=== PATIENT | female | born 1945 | race Caucasian/White ===

== ENCOUNTER 2017-03-20 22:23 | Inpatient (IN) | payer MEDICARE ==
[2017-03-20 23:17] LABS: Basophils % (Auto) 1.1 % (0.0-1.8); Eosinophils % (Auto) 0.9 % (0.0-4.3); Hematocrit 50.8 % (30.3-42.9); Hemoglobin 16.7 gm/dl (10.1-14.3); Mean Corpuscular HGB Conc 33 % (30-34); Mean Corpuscular Hemoglobin 28 pg (28-32); Mean Corpuscular Volume 84 fl (79-97); Platelet Count 174 K/mm3 (140-440); Red Blood Count 6.04 M/mm3 (3.65-5.03)
[2017-03-20 23:35] LABS: INR 1.09 (0.87-1.13)
[2017-03-20 23:36] LABS: Partial Thromboplastin Time 31.6 Sec. (24.2-36.6)
[2017-03-21] MEDS ORDERED: DILAUDID IV ONE (00:15)
[2017-03-21] MEDS ORDERED: ZOFRAN IV ONE (00:15)
[2017-03-21 00:17] LABS: Anion Gap 25 mmol/L; BUN/Creatinine Ratio 40; Blood Urea Nitrogen 24 mg/dL (7-17); Calcium 9.2 mg/dL (8.4-10.2); Carbon Dioxide 17 mmol/L (22-30); Chloride 100.8 mmol/L (98-107); Glucose 147 mg/dL (65-100); Sodium 139 mmol/L (137-145)
[2017-03-21 00:55] LABS: INR 1.12 (0.87-1.13)
[2017-03-21 00:56] LABS: Partial Thromboplastin Time 32.5 Sec. (24.2-36.6)
--- NOTE | 2017-03-21 00:59 | Emergency Department Report ---
ED Shortness of Breath HPI - General Chief Complaint: Dyspnea/Respdistress Stated Complaint: PIERRE Time Seen by Provider: 03/21/17 00:52 Source: patient, family (daughter at bedside), EMS, old records reviewed (no previous [facility] record) Mode of arrival: Stretcher Limitations: Physical Limitation - History of Present Illness Initial Comments: 71-year-old female the pastas CHF, CVA, diabetes, CAD with 3 stents, depression , A. fib, and hyperlipidemia presents to the hospital with diagnosis of acute exacerbation of heart failure. Patient has shortness of breath and hypoxia at the half-way prior to evaluation. Patient had one dose of Lasix and was sent to the ED for evaluation. Patient denies chest pain but complains of moderate back and bilateral leg pain secondary to stretcher and pt has chronic pain and takes Percocet as needed. Patient is not on any anticoagulation at this time. Patient's last cath years ago with 3 stents placed and patient went into cardiac arrest during the procedure. She is currently DO NOT RESUSCITATE. Previously treated at [facility], [place]. No previous medical record available for review here. - Related Data Allergies Allergy/AdvReac Type Severity Reaction Status Date / Time amoxicillin Allergy Unknown Verified 03/20/17 22:25 codeine Allergy Unknown Verified 03/20/17 22:25 darifenacin [From Enablex] Allergy Unknown Verified 03/20/17 22:31 diatrizoate meglumine Allergy Unknown Verified 03/20/17 22:33 [From Renografin-60] diatrizoate sodium Allergy Unknown Verified 03/20/17 22:33 [From Renografin-60] hydrocodone Allergy Unknown Verified 03/20/17 22:32 iohexol [From Omnipaque] Allergy Unknown Verified 03/20/17 22:33 latex Allergy Unknown Verified 03/20/17 22:32 levofloxacin [From Levaquin] Allergy Unknown Verified 03/20/17 22:32 Penicillins Allergy Unknown Verified 03/20/17 22:26 ED Review of Systems ROS: Stated complaint: PIERRE Other details as noted in HPI Comment: All other systems reviewed and negative (see hpi) ED Past Medical Hx - Past Medical History Previous Medical History?: Yes Hx CVA: Yes Hx Heart Attack/AMI: Yes (3 stents) Hx Congestive Heart Failure: Yes (systolic and diastolic) Hx Diabetes: Yes (Diet controlled) Hx Headaches / Migraines: Yes Hx Psychiatric Treatment: Yes (depression) Additional medical history: AFIB, Hyperlipidema - Social History Smoking Status: Never Smoker ED Physical Exam - General Limitations: Physical Limitation - Other Other exam information: General: obese Head exam: Atraumatic, normocephalic Eyes exam: Normal appearance ENT: Moist mucous membrane, normal oropharynx Neck exam: Normal inspection, full range of motion, no meningismus nontender Respiratory exam: Crackles bilaterally Cardiovascular: Irregular rhythm, positive systolic murmur Abdomen: Soft, nondistended, and nontender, with normal bowel sounds, no rebound, or guarding Extremity: Bilateral lower extremity edema Neurologic: Alert, sensation grossly intact Psychiatric: normal affect, normal mood Skin: Warm, dry, intact ED Course Vital Signs 03/20/17 22:33 Temperature 97.5 F L Pulse Rate 66 Respiratory 24 Rate Blood Pressure 157/88 O2 Sat by Pulse 95 Oximetry - Reevaluation(s) Reevaluation #1: 03/21/17 01:03 BiPAP initiated in the ED ED Medical Decision Making - Lab Data Result diagrams: 03/20/17 23:08 03/20/17 23:08 Lab Results 03/20/17 03/20/17 03/20/17 Range/Units 23:08 23:08 23:08 WBC 14.0 H (4.5-11.0) K/mm3 RBC 6.04 H (3.65-5.03) M/mm3 Hgb 16.7 H (10.1-14.3) gm/dl Hct 50.8 H (30.3-42.9) % MCV 84 (79-97) fl MCH 28 (28-32) pg MCHC 33 (30-34) % RDW 14.0 (13.2-15.2) % Plt Count 174 (140-440) K/mm3 Lymph % (Auto) 12.4 L (13.4-35.0) % Donley % (Auto) 5.8 (0.0-7.3) % Eos % (Auto) 0.9 (0.0-4.3) % Baso % (Auto) 1.1 (0.0-1.8) % Lymph # 1.7 (1.2-5.4) K/mm3 Donley # 0.8 (0.0-0.8) K/mm3 Eos # 0.1 (0.0-0.4) K/mm3 Baso # 0.2 H (0.0-0.1) K/mm3 Seg Neutrophils % 79.8 H (40.0-70.0) % Seg Neutrophils # 11.2 H (1.8-7.7) K/mm3 PT 14.7 (12.2-14.9) Sec. INR 1.09 (0.87-1.13) APTT 31.6 (24.2-36.6) Sec. Sodium 139 (137-145) mmol/L Potassium 4.0 (3.6-5.0) mmol/L Chloride 100.8 (98-107) mmol/L Carbon Dioxide 17 L (22-30) mmol/L Anion Gap 25 mmol/L BUN 24 H (7-17) mg/dL Creatinine 0.6 L (0.7-1.2) mg/dL Estimated GFR > 60 ml/min BUN/Creatinine Ratio 40 % Glucose 147 H (65-100) mg/dL Calcium 9.2 (8.4-10.2) mg/dL Troponin T < 0.010 (0.00-0.029) ng/mL NT-Pro-B Natriuret Pep (0-900) pg/mL 03/20/17 03/21/17 Range/Units 23:08 00:22 WBC (4.5-11.0) K/mm3 RBC (3.65-5.03) M/mm3 Hgb (10.1-14.3) gm/dl Hct (30.3-42.9) % MCV (79-97) fl MCH (28-32) pg MCHC (30-34) % RDW (13.2-15.2) % Plt Count (140-440) K/mm3 Lymph % (Auto) (13.4-35.0) % Donley % (Auto) (0.0-7.3) % Eos % (Auto) (0.0-4.3) % Baso % (Auto) (0.0-1.8) % Lymph # (1.2-5.4) K/mm3 Donley # (0.0-0.8) K/mm3 Eos # (0.0-0.4) K/mm3 Baso # (0.0-0.1) K/mm3 Seg Neutrophils % (40.0-70.0) % Seg Neutrophils # (1.8-7.7) K/mm3 PT 15.0 H (12.2-14.9) Sec. INR 1.12 (0.87-1.13) APTT 32.5 (24.2-36.6) Sec. Sodium (137-145) mmol/L Potassium (3.6-5.0) mmol/L Chloride (98-107) mmol/L Carbon Dioxide (22-30) mmol/L Anion Gap mmol/L BUN (7-17) mg/dL Creatinine (0.7-1.2) mg/dL Estimated GFR ml/min BUN/Creatinine Ratio % Glucose (65-100) mg/dL Calcium (8.4-10.2) mg/dL Troponin T (0.00-0.029) ng/mL NT-Pro-B Natriuret Pep 3718 H (0-900) pg/mL - EKG Data -: EKG Interpreted by Me (aftib rate 73, RBBB, no stemi) - EKG Data When compared to previous EKG there are: previous EKG unavailable - Radiology Data Radiology results: image reviewed (cxr: pulm edema) - Medical Decision Making Patient has pulmonary edema on x-ray. BiPAP initiated and had a reported history of sleep apnea CPAP use. Patient be admitted to the hospital for further diuresis and treatment - Differential Diagnosis CHF exacerbation, IA, unstable angina, A. fib, PE Critical Care Time: No Critical care attestation.: If time is entered above; I have spent that time in minutes in the direct care of this critically ill patient, excluding procedure time. ED Disposition Clinical Impression: Pulmonary edema, Chronic atrial fibrillation, Hx of heart artery stent, Chronic pain, Diabetes, DNR (do not resuscitate) Disposition: DC-09 OP ADMIT IP TO THIS HOSP Is pt being admited?: Yes Condition: Stable Time of Disposition: 00:59 (Dr Mathew/hosp)
[2017-03-21] MEDS ORDERED: D50W (25GM) Syringe IV PRN (01:27)
[2017-03-21] MEDS ORDERED: TYLENOL PO PRN ×2 (01:31→14:00)
[2017-03-21] MEDS ORDERED: ZOFRAN IV PRN (01:31)
[2017-03-21] MEDS ORDERED: NITROSTAT SL PRN (01:35)
--- NOTE | 2017-03-21 02:59 | History and Physical Report ---
CHIEF COMPLAINT: Difficulty in breathing. HISTORY OF PRESENT ILLNESS: The patient is a 71-year-old female, who has been having shortness of breath since yesterday morning and becoming presently worse and this was happening at the half-way where the patient was noted to be short of breath, evaluated and given a dose of Lasix and was sent to the Emergency Room for further evaluation. There is no history of chest pain, but there is history of back pain and also history of leg pain. The patient stated that she was taken off anticoagulant even though she has history of atrial fibrillation. The patient's code status is do not resuscitate. There is no history of fever or chills and no history of cough. PAST MEDICAL HISTORY: Pertinent for cerebrovascular accident, coronary artery disease, congestive heart failure, diabetes mellitus, migraine headache, depression, atrial fibrillation and hyperlipidemia. PAST SURGICAL HISTORY: Pertinent for stent placement. FAMILY HISTORY: Noncontributory. SOCIAL HISTORY: The patient stays at a half-way, does not smoke, does not drink alcohol and does not use illicit drugs. MEDICATIONS: The patient's home medications are not known at this time. ALLERGIES: THE PATIENT IS ALLERGIC TO AMOXICILLIN, CODEINE, DARIFENACIN, DIATRIZOATE MEGLUMINE. REVIEW OF SYSTEMS: CONSTITUTIONAL: There is no fever, no chills, no diaphoresis. HEENT: There is no headache or sore throat. CARDIOVASCULAR: There is no chest pain, orthopnea. RESPIRATORY: Shortness of breath present. There is no cough. GASTROINTESTINAL: There is no nausea, no vomiting, no abdominal pain, diarrhea or constipation. NEUROLOGICAL: There is no numbness. No dizziness. There is generalized weakness. No altered mental status. MUSCULOSKELETAL: There is pain in the legs noted. Back pain is noted. There is no joint swelling. DERMATOLOGICAL: There is no skin rash or itching. GENITOURINARY: There is no dysuria, hematuria or flank pain. Rest of system review is normal. PHYSICAL EXAMINATION: GENERAL: At the time of exam, the patient was found to be alert and oriented x 3 and in mild distress due to shortness of breath. VITAL SIGNS: Shows temperature of 97.5 degrees Fahrenheit, normal pulse rate, respirations 24, blood pressure 138/90, O2 sat of 95% while on BiPAP. HEENT: Showed pupils to be equal, round, reactive to light and accommodation. Extraocular muscles are intact. NECK: Supple with no JVD or carotid bruit. CARDIOVASCULAR SYSTEM: Show first and second heart sounds with no gallops or murmur. RESPIRATORY: Showed good air entry on both sides of the lung with bibasilar rales and mild respiratory wheezing. GASTROINTESTINAL SYSTEM: Show abdomen to be full, soft, nontender with no organomegaly or rigidity. NEUROLOGIC: Showed no focal deficit. MUSCULOSKELETAL: Show no joint swelling or tenderness. DERMATOLOGICAL SYSTEM: Show no skin rash. GENITOURINARY: Showing no costovertebral angle tenderness. PERTINENT LABORATORY DATA AND IMAGING STUDIES: The patient has CBC done that shows elevated white count of 14,000 with elevated hemoglobin of 15.7 and elevated hematocrit of 50.8 with normal MCV. CBC differential showed elevated segmented neutrophils of 79.8 and coagulation studies came back unremarkable. The patient's chemistry shows a slightly elevated BUN of 24 with unremarkable creatinine. Brain natriuretic peptide is high with a value of 3718. Cardiac enzymes show normal troponin level. IMAGING STUDIES: The patient had chest x-ray done that shows obvious pulmonary edema. DIAGNOSIS: Congestive heart failure exacerbation. PLAN: The patient will be admitted to ICU. We will continue BiPAP started in the Emergency Room until reviewed by the rounding doctors and can be discontinued. The patient will have 2D echo done in the morning and will have cardiac enzyme involving troponin, total CK and CK-MB checked q. 6 hours x 2 more levels. The patient will have Accu-Chek before meals and at bedtime followed by low-dose sliding scale using regular Novolin insulin for coverage for blood sugar greater than 150 mg/dL. The patient will have critical care consult with Dr. Slaughter for ICU admission for pulmonary edema with BiPAP. The patient's diet will be consisting carbohydrate diet and also low sodium of 2 g sodium diet. The patient will have CBC checked in the morning. The patient will be on Tylenol 650 mg by mouth every 4 hours for fever, headache and will be on IV Lasix 40 mg daily. The patient will also be on heparin 5000 units subQ q. 12 hours for DVT prophylaxis and will be on nitroglycerin ointment one inch to anterior chest wall t.i.d. as well as sublingual nitroglycerin 0.4 mg every 5 minutes as needed for chest pain. The patient will probably be on IV Zofran 4 mg q. 8 hours for nausea, vomiting and the patient's home medications will be continued and will be reconciled and started accordingly when they are known. Right now, the patient's home medications are not known. The patient will be on Tylenol 650 mg q. 4 hours for fever and headache. JOB# [id number] OCN/SUDHEER MTDD
[2017-03-21] MEDS ORDERED: NITRO-BID 2% TP ONE ×2 (06:14→12:29)
[2017-03-21] MEDS: NITRO-BID 2% TP SCH ×3 (06:30→18:23)
--- NOTE | 2017-03-21 08:39 | XRay Report ---
PORTABLE CHEST INDICATION: Shortness of breath. COMPARISON: None similar at this institution. FINDINGS: Portable, frontal chest radiograph suggests mild cardiomegaly/exaggerated cardiomediastinal silhouette, though in part obscured due to diffuse bilateral airspace opacities, the largest confluent approximately 6.5 x 4 cm in the peripheral left upper lung zone. Left lateral costophrenic angle also not clearly visualized, though large pleural effusions not suspected. Aortic knob calcifications. Demineralized bones with few degenerative changes. CONCLUSION: 1. Extensive bilateral airspace opacities with differential considerations including infection, edema or neoplastic, amongst others. 2. Mild cardiomegaly. Please also correlate clinically, with prior chest imaging or further with CT, as appropriate. Thank you for the opportunity to participate in this patient's care.
[2017-03-21] MEDS: NORVASC PO SCH (09:30)
[2017-03-21] MEDS ORDERED: NORVASC ONE (09:32)
[2017-03-21 09:52] LABS: Hemoglobin 15.7 gm/dl (10.1-14.3); Mean Corpuscular HGB Conc 33 % (30-34); Mean Corpuscular Hemoglobin 28 pg (28-32); Mean Corpuscular Volume 84 fl (79-97); Platelet Count 161 K/mm3 (140-440); Red Cell Distribution Width 14.2 % (13.2-15.2); White Blood Count 13.5 K/mm3 (4.5-11.0)
[2017-03-21] MEDS ORDERED: LASIX IV SCH (10:00)
[2017-03-21 10:14] LABS: Creatine Kinase MB 1.1 ng/mL (0.0-4.0)
[2017-03-21 10:15] LABS: Creatine Kinase 22 units/L (30-135)
[2017-03-21] MEDS ORDERED: LASIX ONE (11:37)
[2017-03-21] MEDS ORDERED: HEPARIN ONE (11:38)
[2017-03-21] MEDS: HEPARIN SUB-Q SCH ×2 (11:50→22:11)
[2017-03-21 12:48] LABS: Creatine Kinase MB 1.1 ng/mL (0.0-4.0)
[2017-03-21 12:49] LABS: Creatine Kinase 30 units/L (30-135)
[2017-03-21] MEDS ORDERED: NON-FORMULARY (Oxycodone Hcl [Oxycodone Tab] 10 MG) PO PRN (13:59)
[2017-03-21] MEDS ORDERED: COREG ONE (14:09)
[2017-03-21] MEDS: COLACE PO SCH ×2 (14:17→22:55)
[2017-03-21] MEDS: COREG PO SCH ×2 (14:18→22:09)
[2017-03-21] MEDS ORDERED: ROXICODONE PO PRN (15:00)
[2017-03-21] MEDS: LASIX IV SCH (18:23)
[2017-03-21] MEDS ORDERED: NON-FORMULARY (Atorvastatin Calcium [Lipitor] 80 MG) PO SCH (22:00)
[2017-03-21] MEDS: WELLBUTRIN SR PO SCH (22:10)
[2017-03-21] MEDS: RESTORIL PO SCH (22:10)
[2017-03-21] MEDS: SENOKOT S PO SCH (22:11)
[2017-03-22] MEDS: LASIX IV SCH ×2 (06:05→19:16)
[2017-03-22] MEDS: NITRO-BID 2% TP SCH ×3 (06:05→19:15)
--- NOTE | 2017-03-22 10:19 | Progress Note ---
Assessment and Plan Assessment and plan: 71-year-old woman with a past medical history of CHF, history of CVA, diabetes, CAD status post 3 stents, depression, atrial fibrillation and hyperlipidemia who presents with shortness of breath and hypoxia consistent with acute exacerbation of CHF. she resides at [facility]. She has multiple medical problems, she's had many recent admissions to the hospital. The patient elected to be DO NOT RESUSCITATE. In the last year alone she's had 3 strokes, she's had a massive heart attack, she developed some bleeding in her GI tract which causes her hematemesis and some abdominal hematoma. She has CLEVE, after she had a massive heart attack she was comatose for 10 days. She has been in and out of rehabilitation until she was finally made a long-term resident of correction months ago. She is on oxygen by nasal cannula as needed, she was supposed to be on a CPAP machine in the past but it has not been continued since her she got to the correction. She is also morbidly obese Echocardiogram, image reviewed, severe mitral leaflet calcification, moderate mitral stenosis and moderate mitral regurgitation, dilated left atrium, mild to moderate . EF of 60% Acute exacerbation of chronic diastolic CHF -Continue IV Lasix, continue beta syed, optimize medications. -We'll benefit from ISIS inhibitor versus ARB Pulmonary venous congestion Continue Lasix as above Atrial fibrillation Continue beta syed Acute on chronic hypoxic respiratory failure Continue rescue BiPAP as needed, continue oxygen supplementation -uses oxygen prn at baseline Diabetes Continue insulins and sliding scale CLEVE cpap at night if not on bipap (educated her daughter that her not using CPAP at [place] is likely worsening her CHF) Obesity Hypoventilation continue bipap and cpap as above Patient is DNR, the case was discussed with the daughter at the bedside and with construction safety consultant The high probability of a clinically significant, sudden or life threatening deterioration of the [cardiovascular, pulmonary] system(s) required my full and direct attention, intervention and personal management. The aggregate critical care time was [33 minutes] minutes. This time is in addition to time spent performing reported procedures but includes the following: [] Data Review and interpretation [] Patient assessment and monitoring of vital signs [] Documentation [] Medication orders and management History Interval history: Patient is currently moaning, short of breath. She is not speaking. Spoke to her daughter at bedside who states that a few days ago she had a cold, now she is short of breath swollen and not doing well. Hospitalist Physical - Physical exam Narrative exam: General.: Severe respiratory distress, using accessory muscles HEENT: Moist mucous membranes, extraocular muscles intact, no lymphadenopathy Neck: supple Cardiac: S1-S2 heard Lungs: Crackles throughoutistended, bowel sounds positive Extremities: 3+ bipedal edema Skin: no rash or lesions Neurologic: Moaning and groaning, moves all extremities, withdraws to pain, nonverbal at this time, lethargic - Constitutional Vitals: Temp Pulse Resp BP Pulse Ox 97.6 F 97 H 20 162/64 95 03/22/17 04:23 03/22/17 06:05 03/22/17 04:23 03/22/17 06:05 03/22/17 09:19 Results - Labs CBC & Chem 7: 03/21/17 09:30 03/20/17 23:08 Labs: Laboratory Last Values WBC 13.5 K/mm3 (4.5-11.0) H 03/21/17 09:30 RBC 5.60 M/mm3 (3.65-5.03) H 03/21/17 09:30 Hgb 15.7 gm/dl (10.1-14.3) H 03/21/17 09:30 Hct 47.0 % (30.3-42.9) H 03/21/17 09:30 MCV 84 fl (79-97) 03/21/17 09:30 MCH 28 pg (28-32) 03/21/17 09:30 MCHC 33 % (30-34) 03/21/17 09:30 RDW 14.2 % (13.2-15.2) 03/21/17 09:30 Plt Count 161 K/mm3 (140-440) 03/21/17 09:30 Lymph % (Auto) 12.4 % (13.4-35.0) L 03/20/17 23:08 Mcpherson % (Auto) 5.8 % (0.0-7.3) 03/20/17 23:08 Eos % (Auto) 0.9 % (0.0-4.3) 03/20/17 23:08 Baso % (Auto) 1.1 % (0.0-1.8) 03/20/17 23:08 Lymph # 1.7 K/mm3 (1.2-5.4) 03/20/17 23:08 Mcpherson # 0.8 K/mm3 (0.0-0.8) 03/20/17 23:08 Eos # 0.1 K/mm3 (0.0-0.4) 03/20/17 23:08 Baso # 0.2 K/mm3 (0.0-0.1) H 03/20/17 23:08 Seg Neutrophils % 79.8 % (40.0-70.0) H 03/20/17 23:08 Seg Neutrophils # 11.2 K/mm3 (1.8-7.7) H 03/20/17 23:08 PT 15.0 Sec. (12.2-14.9) H 03/21/17 00:22 INR 1.12 (0.87-1.13) 03/21/17 00:22 APTT 32.5 Sec. (24.2-36.6) 03/21/17 00:22 Sodium 139 mmol/L (137-145) 03/20/17 23:08 Potassium 4.0 mmol/L (3.6-5.0) 03/20/17 23:08 Chloride 100.8 mmol/L (98-107) 03/20/17 23:08 Carbon Dioxide 17 mmol/L (22-30) L 03/20/17 23:08 Anion Gap 25 mmol/L 03/20/17 23:08 BUN 24 mg/dL (7-17) H 03/20/17 23:08 Creatinine 0.6 mg/dL (0.7-1.2) L 03/20/17 23:08 Estimated GFR > 60 ml/min 03/20/17 23:08 BUN/Creatinine Ratio 40 % 03/20/17 23:08 Glucose 147 mg/dL (65-100) H 03/20/17 23:08 POC Glucose 164 (70-105) H 03/21/17 22:47 Calcium 9.2 mg/dL (8.4-10.2) 03/20/17 23:08 Total Creatine Kinase 30 units/L (30-135) 03/21/17 11:52 CK-MB (CK-2) 1.1 ng/mL (0.0-4.0) 03/21/17 11:52 CK-MB (CK-2) Rel Index 3.6 (0-4) 03/21/17 11:52 Troponin T < 0.010 ng/mL (0.00-0.029) 03/21/17 11:52 NT-Pro-B Natriuret Pep 3718 pg/mL (0-900) H 03/20/17 23:08 - Imaging and Cardiology Chest x-ray: image reviewed (extensive pulmonary edema)
[2017-03-22] MEDS: COLACE PO SCH ×2 (11:12→22:50)
[2017-03-22] MEDS: NORVASC PO SCH (11:13)
[2017-03-22] MEDS: COREG PO SCH ×2 (11:13→22:50)
[2017-03-22] MEDS: WELLBUTRIN SR PO SCH ×2 (11:14→22:50)
[2017-03-22] MEDS: ROXICODONE PO PRN (11:17)
[2017-03-22] MEDS: HEPARIN SUB-Q SCH ×2 (11:18→22:50)
--- NOTE | 2017-03-22 14:51 | Consultation ---
History of Present Illness Consult date: 03/22/17 Consult reason: congestive heart failure History of present illness: This is a 71yr old woman who resides in a alf who presented with complaints of shortness of breath. Daughter at bedside reports the patient had nausea, vomiting and abdominal pain after possibly eating bad food. 2 days later , the patient became short of breath and was sent to the ED for evaluation. Cardiac consultation was requested for CHF. Daughter at bedside reports the patient has a history of atrial fibrillation but is no longer on oral anticoagulation due to micro-hemorrhages seen on MRI at [place]. There is also a history of Coronary artery disease, CHF, HTN, Sleep apnea and prior CVA. Chest x-ray reports pulmonary edema versus infection versus neoplasm. Patient remains afebrile but labs shows a WBC 14,000 on presentation. Echocardiogram done this admission demonstrates a severe mitral leaflet calcification, moderate mitral stenosis and moderate mitral regurgitation. There was a dilated left atrium, mild to moderate and evidence of severe pulmonary hypertension. Normal left ventricular systolic function, EF of 60-65%. ECG is atrial fibrillation with a well controlled ventricular rate and a right bundle branch block. Medications and Allergies Allergies Allergy/AdvReac Type Severity Reaction Status Date / Time amoxicillin Allergy Unknown Verified 03/20/17 22:25 codeine Allergy Unknown Verified 03/20/17 22:25 darifenacin [From Enablex] Allergy Unknown Verified 03/20/17 22:31 diatrizoate meglumine Allergy Unknown Verified 03/20/17 22:33 [From Renografin-60] diatrizoate sodium Allergy Unknown Verified 03/20/17 22:33 [From Renografin-60] hydrocodone Allergy Unknown Verified 03/20/17 22:32 iohexol [From Omnipaque] Allergy Unknown Verified 03/20/17 22:33 latex Allergy Unknown Verified 03/20/17 22:32 levofloxacin [From Levaquin] Allergy Unknown Verified 03/20/17 22:32 Penicillins Allergy Unknown Verified 03/20/17 22:26 Home Medications Medication Instructions Recorded Confirmed Last Taken Type Acetaminophen [Non-Aspirin] 650 mg PO Q6H PRN 03/21/17 03/21/17 Unknown History Atorvastatin Calcium [Lipitor] 80 mg PO QHS 03/21/17 03/21/17 Unknown History Benzonatate [Tessalon Perle] 200 mg PO Q18H PRN 03/21/17 03/21/17 Unknown History Carvedilol [Coreg] 12.5 mg PO Q12H 03/21/17 03/21/17 Unknown History Cetirizine HCl [ZyrTEC] 10 mg PO QDAY 03/21/17 03/21/17 Unknown History Docusate Sodium [Colace CAP] 100 mg PO Q12H 03/21/17 03/21/17 Unknown History Furosemide [Lasix] 20 mg PO QDAY 03/21/17 03/21/17 Unknown History Oxycodone HCl [oxyCODONE TAB] 10 mg PO Q4H PRN 03/21/17 03/21/17 Unknown History Sennosides/Docusate Sodium [Senna 1 tab PO QHS 03/21/17 03/21/17 Unknown History S Tablet] Temazepam [Restoril] 15 mg PO QHS 03/21/17 03/21/17 Unknown History amLODIPine [Norvasc] 10 mg PO QDAY 03/21/17 03/21/17 Unknown History buPROPion SR [Wellbutrin SR] 150 mg PO BID 03/21/17 03/21/17 Unknown History Active Meds: Active Medications Acetaminophen (Tylenol) 650 mg PO Q6H PRN PRN Reason: fever/headache Amlodipine Besylate (Norvasc) 10 mg PO QDAY [facility] Last Admin: 03/21/17 09:30 Dose: 10 mg Atorvastatin Calcium (Lipitor) 80 mg PO QHS [facility] Last Admin: 03/21/17 22:08 Dose: 80 mg Bupropion HCl (Wellbutrin Sr) 150 mg PO BID [facility] Last Admin: 03/21/17 22:10 Dose: 150 mg Carvedilol (Coreg) 12.5 mg PO Q12HR [facility] Last Admin: 03/21/17 22:09 Dose: 12.5 mg Dextrose (D50w (25gm) Syringe) 50 ml IV PRN PRN PRN Reason: Hypoglycemia Docusate Sodium (Colace) 100 mg PO Q12HR [facility] Last Admin: 03/21/17 22:55 Dose: Not Given Furosemide (Lasix) 40 mg IV 0600,1800 [facility] Last Admin: 03/22/17 06:05 Dose: 40 mg Heparin Sodium (Porcine) (Heparin) 5,000 unit SUB-Q Q12HR [facility] Last Admin: 03/21/17 22:11 Dose: 5,000 unit Insulin Human Regular (Novolin R) 0 units SUB-Q [facility] PRN Reason: Protocol Last Admin: 03/21/17 18:23 Dose: Not Given Insulin Human Regular (Novolin R) 0 units SUB-Q QHS [facility] PRN Reason: Protocol Last Admin: 03/21/17 22:55 Dose: 1 units Nitroglycerin (Nitrostat) 0.4 mg SL .Q5MIN PRN PRN Reason: Chest Pain Nitroglycerin (Nitro-Bid 2%) 1 inch TP TIDNTG [facility] PRN Reason: Protocol Last Admin: 03/22/17 06:05 Dose: 1 inch Ondansetron HCl (Zofran) 4 mg IV Q8H PRN PRN Reason: Nausea And Vomiting Oxycodone HCl (Roxicodone) 10 mg PO Q4H PRN PRN Reason: Pain Senna/Docusate Sodium (Senokot S) 1 tab PO QHS [facility] Last Admin: 03/21/17 22:11 Dose: 1 tab Temazepam (Restoril) 15 mg PO QHS [facility] Last Admin: 03/21/17 22:10 Dose: 15 mg Physical Examination Vital Signs Temp Pulse Resp BP Pulse Ox 97.5 F L 66 24 157/88 95 03/20/17 22:33 03/20/17 22:33 03/20/17 22:33 03/20/17 22:33 03/20/17 22:33 General appearance: mild distress Cardiac: Positive: irregularly irregular, Systolic Murmur Results 03/21/17 09:30 03/20/17 23:08 Assessment and Plan Shortness of breath pulmonary HTN CHF with preserved EF CLEVE Leukocytosis Persistent Afib previously considered not a candidate for oral anticoagulation Prior CVA Hypertension RBBB Hx of CAD DNR/AND status
[2017-03-22] MEDS: RESTORIL PO SCH (22:50)
[2017-03-22] MEDS: SENOKOT S PO SCH (22:50)
[2017-03-23] MEDS: NITRO-BID 2% TP SCH ×3 (06:36→17:48)
[2017-03-23] MEDS: LASIX IV SCH ×3 (06:38→17:48)
[2017-03-23] MEDS: HEPARIN SUB-Q SCH ×2 (10:07→22:11)
[2017-03-23] MEDS: WELLBUTRIN SR PO SCH ×2 (10:07→22:11)
[2017-03-23] MEDS: COLACE PO SCH ×2 (10:07→22:09)
[2017-03-23] MEDS: COREG PO SCH ×2 (10:07→22:10)
[2017-03-23] MEDS: NORVASC PO SCH (10:07)
[2017-03-23] MEDS: HALFPRIN EC PO SCH (10:07)
--- NOTE | 2017-03-23 10:14 | Progress Note ---
Assessment and Plan Assessment and plan: 71-year-old woman with a past medical history of CHF, history of CVA, diabetes, CAD status post 3 stents, depression, atrial fibrillation and hyperlipidemia who presents with shortness of breath and hypoxia consistent with acute exacerbation of CHF. she resides at [facility]. She has multiple medical problems, she's had many recent admissions to the hospital. The patient elected to be DO NOT RESUSCITATE. In the last year alone she's had 3 strokes, she's had a massive heart attack, she developed some bleeding in her GI tract which causes her hematemesis and some abdominal hematoma. She has CLEVE, after she had a massive heart attack she was comatose for 10 days. She has been in and out of rehabilitation until she was finally made a long-term resident of [facility] months ago. She is on oxygen by nasal cannula as needed, she was supposed to be on a CPAP machine in the past but it has not been continued since her she got to the [facility]. She is also morbidly obese Echocardiogram, image reviewed, severe mitral leaflet calcification, moderate mitral stenosis and moderate mitral regurgitation, dilated left atrium, mild to moderate . EF of 60% Acute exacerbation of chronic diastolic CHF -Continue IV Lasix, continue beta syed, optimize medications. -replace norvasc with an ARB Pulmonary venous congestion Continue Lasix as above Atrial fibrillation Continue beta syed Acute on chronic hypoxic respiratory failure Continue rescue BiPAP as needed, continue high flow oxygen -uses oxygen prn at baseline Diabetes Continue insulins and sliding scale CLEVE cpap at night if not on bipap (educated her daughter that her not using CPAP at [place] is likely worsening her CHF) Obesity Hypoventilation continue high flow oxygen and NIV as needed Patient is DNR, the case was discussed with the daughter at the bedside and with cardiology physician The high probability of a clinically significant, sudden or life threatening deterioration of the [cardiovascular, pulmonary] system(s) required my full and direct attention, intervention and personal management. The aggregate critical care time was [33 minutes] minutes. This time is in addition to time spent performing reported procedures but includes the following: [] Data Review and interpretation [] Patient assessment and monitoring of vital signs [] Documentation [] Medication orders and management History Interval history: Shortness of breath is partially improving. Orthopnea is also improving. Her daughter is at the bedside and states that the patient's mental status is much improved. Hospitalist Physical - Physical exam Narrative exam: General.: Severe respiratory distress, using accessory muscles HEENT: Moist mucous membranes, extraocular muscles intact, no lymphadenopathy Neck: supple Cardiac: S1-S2 heard Lungs: Crackles throughoutistended, bowel sounds positive Extremities: 2+ bipedal edema Skin: no rash or lesions Neurologic: moves all extremities, oriented, judgement intact - Constitutional Vitals: Temp Pulse Resp BP Pulse Ox 98.4 F 85 25 H 127/63 93 03/23/17 04:14 03/23/17 09:19 03/23/17 09:19 03/23/17 06:36 03/23/17 09:19 General appearance: Present: mild distress Results - Labs CBC & Chem 7: 03/21/17 09:30 03/20/17 23:08 Labs: Laboratory Last Values WBC 13.5 K/mm3 (4.5-11.0) H 03/21/17 09:30 RBC 5.60 M/mm3 (3.65-5.03) H 03/21/17 09:30 Hgb 15.7 gm/dl (10.1-14.3) H 03/21/17 09:30 Hct 47.0 % (30.3-42.9) H 03/21/17 09:30 MCV 84 fl (79-97) 03/21/17 09:30 MCH 28 pg (28-32) 03/21/17 09:30 MCHC 33 % (30-34) 03/21/17 09:30 RDW 14.2 % (13.2-15.2) 03/21/17 09:30 Plt Count 161 K/mm3 (140-440) 03/21/17 09:30 Lymph % (Auto) 12.4 % (13.4-35.0) L 03/20/17 23:08 King % (Auto) 5.8 % (0.0-7.3) 03/20/17 23:08 Eos % (Auto) 0.9 % (0.0-4.3) 03/20/17 23:08 Baso % (Auto) 1.1 % (0.0-1.8) 03/20/17 23:08 Lymph # 1.7 K/mm3 (1.2-5.4) 03/20/17 23:08 King # 0.8 K/mm3 (0.0-0.8) 03/20/17 23:08 Eos # 0.1 K/mm3 (0.0-0.4) 03/20/17 23:08 Baso # 0.2 K/mm3 (0.0-0.1) H 03/20/17 23:08 Seg Neutrophils % 79.8 % (40.0-70.0) H 03/20/17 23:08 Seg Neutrophils # 11.2 K/mm3 (1.8-7.7) H 03/20/17 23:08 PT 15.0 Sec. (12.2-14.9) H 03/21/17 00:22 INR 1.12 (0.87-1.13) 03/21/17 00:22 APTT 32.5 Sec. (24.2-36.6) 03/21/17 00:22 Sodium 139 mmol/L (137-145) 03/20/17 23:08 Potassium 4.0 mmol/L (3.6-5.0) 03/20/17 23:08 Chloride 100.8 mmol/L (98-107) 03/20/17 23:08 Carbon Dioxide 17 mmol/L (22-30) L 03/20/17 23:08 Anion Gap 25 mmol/L 03/20/17 23:08 BUN 24 mg/dL (7-17) H 03/20/17 23:08 Creatinine 0.6 mg/dL (0.7-1.2) L 03/20/17 23:08 Estimated GFR > 60 ml/min 03/20/17 23:08 BUN/Creatinine Ratio 40 % 03/20/17 23:08 Glucose 147 mg/dL (65-100) H 03/20/17 23:08 POC Glucose 124 (70-105) H 03/23/17 08:35 Calcium 9.2 mg/dL (8.4-10.2) 03/20/17 23:08 Total Creatine Kinase 30 units/L (30-135) 03/21/17 11:52 CK-MB (CK-2) 1.1 ng/mL (0.0-4.0) 03/21/17 11:52 CK-MB (CK-2) Rel Index 3.6 (0-4) 03/21/17 11:52 Troponin T < 0.010 ng/mL (0.00-0.029) 03/21/17 11:52 NT-Pro-B Natriuret Pep 3718 pg/mL (0-900) H 03/20/17 23:08
--- NOTE | 2017-03-23 11:38 | Progress Note ---
Assessment and Plan Shortness of breath CLEVE Hypoxia Pulmonary HTN CHF with preserved EF Leukocytosis Persistent Afib previously considered not a candidate for oral anticoagulation Prior CVA Hypertension RBBB Hx of CAD DNR/AND status Subjective Date of service: 03/23/17 Interval history: Currently on Bipap therapy. Stable Afib on telemetry. Objective Vital Signs Temp Pulse Pulse Resp BP Pulse Ox 03/23/17 10:00 74 74 20 98 03/23/17 09:19 85 25 H 93 03/23/17 06:36 78 127/63 03/23/17 04:14 98.4 F 69 17 127/65 100 03/23/17 02:09 67 27 H 100 03/23/17 01:48 98.3 F 72 17 128/67 93 03/22/17 22:50 89 133/69 03/22/17 22:00 90 99 03/22/17 19:57 97 03/22/17 19:52 96 H 28 H 97 03/22/17 19:21 98.9 F 89 24 133/69 93 03/22/17 16:27 98.1 F 85 20 123/65 99 03/22/17 16:04 79 26 H 96 03/22/17 13:30 88 27 H 96 - Physical Examination Cardiac: Positive: irregularly irregular
[2017-03-23] MEDS: SENOKOT S PO SCH (22:09)
[2017-03-23] MEDS: RESTORIL PO SCH (22:11)
[2017-03-24] MEDS: LASIX IV SCH ×2 (05:13→18:00)
[2017-03-24] MEDS: NITRO-BID 2% TP SCH ×3 (06:00→18:00)
--- NOTE | 2017-03-24 08:57 | Progress Note ---
Assessment and Plan Assessment and plan: 71-year-old woman with a past medical history of CHF, history of CVA, diabetes, CAD status post 3 stents, depression, atrial fibrillation and hyperlipidemia who presents with shortness of breath and hypoxia consistent with acute exacerbation of CHF. she resides at [facility]. She has multiple medical problems, she's had many recent admissions to the hospital. The patient elected to be DO NOT RESUSCITATE. In the last year alone she's had 3 strokes, she's had a massive heart attack, she developed some bleeding in her GI tract which causes her hematemesis and some abdominal hematoma. She has CLEVE, after she had a massive heart attack she was comatose for 10 days. She has been in and out of rehabilitation until she was [facility]. She is on oxygen by nasal cannula as needed, she was supposed to be on a CPAP machine in the past but it has not been continued since her she got to the long term. She is also morbidly obese, bed bound and chronically ill Echocardiogram, image reviewed, severe mitral leaflet calcification, moderate mitral stenosis and moderate mitral regurgitation, dilated left atrium, mild to moderate . EF of 60% Acute exacerbation of chronic diastolic CHF -Continue IV Lasix, continue beta syed, optimize medications. -replace norvasc with an ARB Pulmonary venous congestion Continue Lasix as above Atrial fibrillation Continue beta syed Acute on chronic hypoxic respiratory failure Continue rescue BiPAP as needed, continue high flow oxygen -uses oxygen prn at baseline Diabetes Continue insulins and sliding scale CLEVE cpap at night if not on bipap (educated her daughter that her not using CPAP at [place] is likely worsening her CHF) Obesity Hypoventilation continue high flow oxygen and NIV as needed Patient is DNR, the case was discussed with the daughter at the bedside and with transportation consultant The high probability of a clinically significant, sudden or life threatening deterioration of the [cardiovascular, pulmonary] system(s) required my full and direct attention, intervention and personal management. The aggregate critical care time was [33 minutes] minutes. This time is in addition to time spent performing reported procedures but includes the following: [] Data Review and interpretation [] Patient assessment and monitoring of vital signs [] Documentation [] Medication orders and management History Interval history: Shortness of breath is partially improving. Orthopnea is also improving. Her daughter is at the bedside and states that the patient's mental status is much improved. Hospitalist Physical - Physical exam Narrative exam: General.: Severe respiratory distress, using accessory muscles HEENT: Moist mucous membranes, extraocular muscles intact, no lymphadenopathy Neck: supple Cardiac: S1-S2 heard Lungs: bibasilar crackles abdomen, bowel sounds positive Extremities: 2+ bipedal edema Skin: no rash or lesions Neurologic: moves all extremities, oriented, judgement intact - Constitutional Vitals: Temp Pulse Resp BP Pulse Ox 98 F 71 24 136/68 96 03/24/17 07:00 03/24/17 07:00 03/24/17 07:00 03/24/17 07:00 03/24/17 07:00 General appearance: Present: mild distress Results - Labs CBC & Chem 7: 03/21/17 09:30 03/24/17 14:09 Labs: Laboratory Last Values WBC 13.5 K/mm3 (4.5-11.0) H 03/21/17 09:30 RBC 5.60 M/mm3 (3.65-5.03) H 03/21/17 09:30 Hgb 15.7 gm/dl (10.1-14.3) H 03/21/17 09:30 Hct 47.0 % (30.3-42.9) H 03/21/17 09:30 MCV 84 fl (79-97) 03/21/17 09:30 MCH 28 pg (28-32) 03/21/17 09:30 MCHC 33 % (30-34) 03/21/17 09:30 RDW 14.2 % (13.2-15.2) 03/21/17 09:30 Plt Count 161 K/mm3 (140-440) 03/21/17 09:30 Lymph % (Auto) 12.4 % (13.4-35.0) L 03/20/17 23:08 [place]anner % (Auto) 5.8 % (0.0-7.3) 03/20/17 23:08 Eos % (Auto) 0.9 % (0.0-4.3) 03/20/17 23:08 Baso % (Auto) 1.1 % (0.0-1.8) 03/20/17 23:08 Lymph # 1.7 K/mm3 (1.2-5.4) 03/20/17 23:08 Banner # 0.8 K/mm3 (0.0-0.8) 03/20/17 23:08 Eos # 0.1 K/mm3 (0.0-0.4) 03/20/17 23:08 Baso # 0.2 K/mm3 (0.0-0.1) H 03/20/17 23:08 Seg Neutrophils % 79.8 % (40.0-70.0) H 03/20/17 23:08 Seg Neutrophils # 11.2 K/mm3 (1.8-7.7) H 03/20/17 23:08 PT 15.0 Sec. (12.2-14.9) H 03/21/17 00:22 INR 1.12 (0.87-1.13) 03/21/17 00:22 APTT 32.5 Sec. (24.2-36.6) 03/21/17 00:22 Sodium 139 mmol/L (137-145) 03/20/17 23:08 Potassium 4.0 mmol/L (3.6-5.0) 03/20/17 23:08 Chloride 100.8 mmol/L (98-107) 03/20/17 23:08 Carbon Dioxide 17 mmol/L (22-30) L 03/20/17 23:08 Anion Gap 25 mmol/L 03/20/17 23:08 BUN 24 mg/dL (7-17) H 03/20/17 23:08 Creatinine 0.6 mg/dL (0.7-1.2) L 03/20/17 23:08 Estimated GFR > 60 ml/min 03/20/17 23:08 BUN/Creatinine Ratio 40 % 03/20/17 23:08 Glucose 147 mg/dL (65-100) H 03/20/17 23:08 POC Glucose 221 (70-105) H 03/23/17 23:18 Calcium 9.2 mg/dL (8.4-10.2) 03/20/17 23:08 Total Creatine Kinase 30 units/L (30-135) 03/21/17 11:52 CK-MB (CK-2) 1.1 ng/mL (0.0-4.0) 03/21/17 11:52 CK-MB (CK-2) Rel Index 3.6 (0-4) 03/21/17 11:52 Troponin T < 0.010 ng/mL (0.00-0.029) 03/21/17 11:52 NT-Pro-B Natriuret Pep 3718 pg/mL (0-900) H 03/20/17 23:08
[2017-03-24] MEDS: HEPARIN SUB-Q SCH ×2 (10:00→21:39)
--- NOTE | 2017-03-24 10:47 | Progress Note ---
Assessment and Plan Shortness of breath CLEVE Hypoxia Pulmonary HTN CHF with preserved EF Leukocytosis Persistent Afib previously considered not a candidate for oral anticoagulation Prior CVA Hypertension RBBB Hx of CAD DNR/AND status Continue medical management for heart failure with preserved ejection fraction. Subjective Date of service: 03/24/17 Interval history: Currently on high flow oxygen. No distress noted. Stable Afib on telemetry. Objective Vital Signs Temp Pulse Resp BP BP Pulse Ox 03/24/17 07:00 98 F 71 24 136/68 96 03/24/17 04:21 71 98 03/24/17 04:20 97.9 F 72 20 130/62 98 03/24/17 01:59 72 98 03/24/17 01:58 97.5 F L 69 20 128/65 98 03/24/17 01:24 78 03/24/17 01:05 78 28 H 97 03/23/17 22:10 84 148/56 03/23/17 21:41 98.3 F 84 20 148/56 99 03/23/17 21:00 73 94 03/23/17 20:18 93 03/23/17 16:10 97.9 F 92 H 14 112/74 79 L - Physical Examination General: No Apparent Distress Cardiac: Positive: irregularly irregular
--- NOTE | 2017-03-24 11:04 | XRay Report ---
PORTABLE CHEST INDICATION: Shortness of breath. COMPARISON: 03/20/2017 FINDINGS: Portable, frontal chest radiograph demonstrates stable cardiomediastinal silhouette/mild cardiomegaly and dense aortic knob calcifications. Extensive bilateral airspace opacities have improved, more so in the right upper to midlung zone, though persistent in remainder distribution. No large pleural effusions. EKG leads. Demineralized bones with degenerative changes. CONCLUSION: 1. Improving, though not completely resolved bilateral airspace opacities, as described, possibly infection or edema. 2. Mild cardiomegaly. Thank you for the opportunity to participate in this patient's care.
[2017-03-24] MEDS: COLACE PO SCH ×2 (12:58→21:39)
[2017-03-24] MEDS: WELLBUTRIN SR PO SCH ×2 (12:58→21:40)
[2017-03-24] MEDS: COREG PO SCH ×2 (12:58→21:48)
[2017-03-24] MEDS: HALFPRIN EC PO SCH (12:59)
[2017-03-24] MEDS: COZAAR PO SCH (13:15)
[2017-03-24 14:48] LABS: BUN/Creatinine Ratio 69; Blood Urea Nitrogen 48 mg/dL (7-17); Calcium 8.8 mg/dL (8.4-10.2); Carbon Dioxide 25 mmol/L (22-30); Chloride 96.9 mmol/L (98-107); Glucose 207 mg/dL (65-100); Potassium 3.6 mmol/L (3.6-5.0); Sodium 136 mmol/L (137-145)
[2017-03-24 14:53] LABS: Anion Gap 18 mmol/L
[2017-03-24] MEDS: SENOKOT S PO SCH (21:39)
[2017-03-24] MEDS: RESTORIL PO SCH (21:40)
[2017-03-25] MEDS: LASIX IV SCH ×2 (06:33→18:57)
[2017-03-25] MEDS: NITRO-BID 2% TP SCH ×3 (06:33→18:57)
[2017-03-25] MEDS: WELLBUTRIN SR PO SCH ×2 (10:16→22:37)
[2017-03-25] MEDS: COLACE PO SCH ×2 (10:16→22:38)
[2017-03-25] MEDS: HEPARIN SUB-Q SCH (10:17)
[2017-03-25] MEDS: HALFPRIN EC PO SCH (10:17)
[2017-03-25] MEDS: COREG PO SCH ×2 (10:23→22:41)
[2017-03-25] MEDS: COZAAR PO SCH (10:24)
--- NOTE | 2017-03-25 10:43 | Progress Note ---
Assessment and Plan Shortness of breath CLEVE Hypoxia Pulmonary HTN CHF with preserved EF Leukocytosis Persistent Afib previously considered not a candidate for oral anticoagulation Prior CVA Hypertension RBBB Hx of CAD DNR/AND status Continue medical management for heart failure with preserved ejection fraction. Subjective Date of service: 03/25/17 Principal diagnosis: SOB Interval history: No events overnight Objective Vital Signs Temp Pulse Resp BP BP Pulse Ox 03/25/17 07:50 107/36 03/25/17 07:49 63 97/17 96 03/25/17 06:33 65 106/50 03/25/17 05:00 95 03/25/17 04:00 98.3 F 65 18 106/50 99 03/25/17 00:21 63 03/24/17 23:28 97.9 F 65 18 112/23 92 03/24/17 21:48 63 81/48 03/24/17 21:24 68 28 H 99 03/24/17 21:04 94 03/24/17 19:20 63 03/24/17 19:16 98.2 F 65 18 68/39 91 03/24/17 15:10 97 F L 60 22 128/71 94 03/24/17 11:00 95 03/24/17 10:57 97.3 F L 82 26 H 132/63 94 - Physical Examination Narrative exam: Physical examination General.: Appears well, moderately obese HEENT: Moist mucous membranes, extraocular muscles intact, no lymphadenopathy Neck: supple Cardiac: S1-S2 heard Lungs: clear to auscultation bilaterally Abdomen: soft , nontender, nondistended, bowel sounds positive Extremities: no clubbing or cyanosis Skin: no rash or lesions Neurologic: no gross focal deficits, hard of hearing Psych: appropriate behavior, appropriate mood, corporative, judgment intact General: No Apparent Distress - Labs and Meds Comprehensive Metabolic Panel 03/24/17 Range/Units 14:09 Sodium 136 L (137-145) mmol/L Potassium 3.6 (3.6-5.0) mmol/L Chloride 96.9 L (98-107) mmol/L Carbon Dioxide 25 D (22-30) mmol/L BUN 48 H (7-17) mg/dL Creatinine 0.7 (0.7-1.2) mg/dL Glucose 207 H (65-100) mg/dL Calcium 8.8 (8.4-10.2) mg/dL
[2017-03-25 12:57] LABS: Anion Gap 15 mmol/L; BUN/Creatinine Ratio 60; Blood Urea Nitrogen 54 mg/dL (7-17); Calcium 9.1 mg/dL (8.4-10.2); Carbon Dioxide 28 mmol/L (22-30); Chloride 97.6 mmol/L (98-107); Glucose 219 mg/dL (65-100); Sodium 138 mmol/L (137-145)
[2017-03-25] MEDS ORDERED: K-DUR PO ONE (13:55)
[2017-03-25] MEDS: ALDACTONE PO SCH (15:00)
--- NOTE | 2017-03-25 19:30 | Progress Note ---
Assessment and Plan Assessment and plan: 71-year-old woman with a past medical history of CHF, history of CVA, diabetes, CAD status post 3 stents, depression, atrial fibrillation and hyperlipidemia who presents with shortness of breath and hypoxia consistent with acute exacerbation of CHF. she resides at [facility]. She has multiple medical problems, she's had many recent admissions to the hospital. The patient elected to be DO NOT RESUSCITATE. In the last year alone she's had 3 strokes, she's had a massive heart attack, she developed some bleeding in her GI tract which causes her hematemesis and some abdominal hematoma. She has CLEVE, after she had a massive heart attack she was comatose for 10 days. She has been in and out of rehabilitation until she was finally made a long-term resident of [facility] months ago. She is on oxygen by nasal cannula as needed, she was supposed to be on a CPAP machine in the past but it has not been continued since her she got to the [facility]. She is also morbidly obese, bed bound and chronically ill Echocardiogram, image reviewed, severe mitral leaflet calcification, moderate mitral stenosis and moderate mitral regurgitation, dilated left atrium, mild to moderate . EF of 60% Acute exacerbation of chronic diastolic CHF -Continue IV Lasix, continue beta syed, optimize medications. dc BP meds as BP is on the low side -add aldactone Pulmonary venous congestion Continue Lasix as above Atrial fibrillation Continue beta syed Acute on chronic hypoxic respiratory failure Continue rescue BiPAP as needed, continue high flow oxygen -uses oxygen prn at baseline Diabetes Continue insulins and sliding scale CLEVE cpap at night if not on bipap (educated her daughter that her not using CPAP at [place] is likely worsening her CHF) Obesity Hypoventilation continue high flow oxygen and NIV as needed Hypokalemia replete Patient is DNR, the case was discussed with the daughter at the bedside and with proposal consultant The high probability of a clinically significant, sudden or life threatening deterioration of the [cardiovascular, pulmonary] system(s) required my full and direct attention, intervention and personal management. The aggregate critical care time was [33 minutes] minutes. This time is in addition to time spent performing reported procedures but includes the following: [] Data Review and interpretation [] Patient assessment and monitoring of vital signs [] Documentation [] Medication orders and management History Interval history: Shortness of breath is partially improving. Orthopnea is also improving. Her daughter is at the bedside and states that the patient's mental status is much improved. Hospitalist Physical - Physical exam Narrative exam: General.: Severe respiratory distress, using accessory muscles HEENT: Moist mucous membranes, extraocular muscles intact, no lymphadenopathy Neck: supple Cardiac: S1-S2 heard Lungs: bibasilar crackles abdomen, bowel sounds positive Extremities: 2+ bipedal edema Skin: no rash or lesions Neurologic: moves all extremities, oriented, judgement intact - Constitutional Vitals: Temp Pulse Resp BP Pulse Ox 98.4 F 70 20 93/36 89 03/25/17 16:55 03/25/17 16:55 03/25/17 16:55 03/25/17 16:55 03/25/17 16:55 General appearance: Present: mild distress Results - Labs CBC & Chem 7: 03/21/17 09:30 03/25/17 12:22 Labs: Laboratory Last Values WBC 13.5 K/mm3 (4.5-11.0) H 03/21/17 09:30 RBC 5.60 M/mm3 (3.65-5.03) H 03/21/17 09:30 Hgb 15.7 gm/dl (10.1-14.3) H 03/21/17 09:30 Hct 47.0 % (30.3-42.9) H 03/21/17 09:30 MCV 84 fl (79-97) 03/21/17 09:30 MCH 28 pg (28-32) 03/21/17 09:30 MCHC 33 % (30-34) 03/21/17 09:30 RDW 14.2 % (13.2-15.2) 03/21/17 09:30 Plt Count 161 K/mm3 (140-440) 03/21/17 09:30 Lymph % (Auto) 12.4 % (13.4-35.0) L 03/20/17 23:08 [place] % (Auto) 5.8 % (0.0-7.3) 03/20/17 23:08 Eos % (Auto) 0.9 % (0.0-4.3) 03/20/17 23:08 Baso % (Auto) 1.1 % (0.0-1.8) 03/20/17 23:08 Lymph # 1.7 K/mm3 (1.2-5.4) 03/20/17 23:08 [place] # 0.8 K/mm3 (0.0-0.8) 03/20/17 23:08 Eos # 0.1 K/mm3 (0.0-0.4) 03/20/17 23:08 Baso # 0.2 K/mm3 (0.0-0.1) H 03/20/17 23:08 Seg Neutrophils % 79.8 % (40.0-70.0) H 03/20/17 23:08 Seg Neutrophils # 11.2 K/mm3 (1.8-7.7) H 03/20/17 23:08 PT 15.0 Sec. (12.2-14.9) H 03/21/17 00:22 INR 1.12 (0.87-1.13) 03/21/17 00:22 APTT 32.5 Sec. (24.2-36.6) 03/21/17 00:22 Sodium 138 mmol/L (137-145) 03/25/17 12:22 Potassium 3.0 mmol/L (3.6-5.0) L 03/25/17 12:22 Chloride 97.6 mmol/L (98-107) L 03/25/17 12:22 Carbon Dioxide 28 mmol/L (22-30) 03/25/17 12:22 Anion Gap 15 mmol/L 03/25/17 12:22 BUN 54 mg/dL (7-17) H 03/25/17 12:22 Creatinine 0.9 mg/dL (0.7-1.2) 03/25/17 12:22 Estimated GFR > 60 ml/min 03/25/17 12:22 BUN/Creatinine Ratio 60 % 03/25/17 12:22 Glucose 219 mg/dL (65-100) H 03/25/17 12:22 POC Glucose 146 (70-105) H 03/25/17 19:14 Calcium 9.1 mg/dL (8.4-10.2) 03/25/17 12:22 Total Creatine Kinase 30 units/L (30-135) 03/21/17 11:52 CK-MB (CK-2) 1.1 ng/mL (0.0-4.0) 03/21/17 11:52 CK-MB (CK-2) Rel Index 3.6 (0-4) 03/21/17 11:52 Troponin T < 0.010 ng/mL (0.00-0.029) 03/21/17 11:52 NT-Pro-B Natriuret Pep 3718 pg/mL (0-900) H 03/20/17 23:08
[2017-03-25] MEDS: RESTORIL PO SCH (22:38)
[2017-03-25] MEDS: SENOKOT S PO SCH (22:38)
[2017-03-26] MEDS: LASIX IV SCH ×3 (06:16→21:39)
[2017-03-26] MEDS: NITRO-BID 2% TP SCH ×3 (06:17→18:14)
[2017-03-26] MEDS ORDERED: LASIX IV SCH (09:00)
[2017-03-26] MEDS ORDERED: LOVENOX SUB-Q SCH (10:00)
[2017-03-26] MEDS ORDERED: K-DUR PO SCH (10:00)
--- NOTE | 2017-03-26 10:25 | Progress Note ---
Assessment and Plan Shortness of breath CLEVE Hypoxia Pulmonary HTN CHF with preserved EF Leukocytosis Persistent Afib previously considered not a candidate for oral anticoagulation Prior CVA Hypertension RBBB Hx of CAD DNR/AND status Increasing BUN and CO2 Decrease dose of IV diuretics Monitor renal function Continue medical management for heart failure with preserved ejection fraction. Subjective Date of service: 03/26/17 Principal diagnosis: SOB Interval history: No events overnight Objective Vital Signs Temp Pulse Resp BP BP Pulse Ox 03/26/17 09:48 99 03/26/17 09:11 96.0 F L 71 17 139/61 99 03/26/17 04:44 97.5 F L 67 16 127/67 100 03/26/17 02:15 65 24 98 03/26/17 00:09 69 03/25/17 23:30 97.7 F 69 12 126/58 98 03/25/17 22:41 94 H 146/62 03/25/17 21:23 79 28 H 100 03/25/17 20:22 98.2 F 94 H 16 146/62 91 03/25/17 20:17 92 03/25/17 16:55 98.4 F 70 20 93/36 89 03/25/17 16:54 75 88 03/25/17 13:24 71 03/25/17 13:00 96 - Physical Examination Narrative exam: Physical examination General.: Appears well, moderately obese HEENT: Moist mucous membranes, extraocular muscles intact, no lymphadenopathy Neck: supple Cardiac: S1-S2 heard Lungs: clear to auscultation bilaterally Abdomen: soft , nontender, nondistended, bowel sounds positive Extremities: no clubbing or cyanosis Skin: no rash or lesions Neurologic: no gross focal deficits, hard of hearing Psych: appropriate behavior, appropriate mood, corporative, judgment intact General: No Apparent Distress - Labs and Meds Comprehensive Metabolic Panel 03/25/17 Range/Units 12:22 Sodium 138 (137-145) mmol/L Potassium 3.0 L (3.6-5.0) mmol/L Chloride 97.6 L (98-107) mmol/L Carbon Dioxide 28 (22-30) mmol/L BUN 54 H (7-17) mg/dL Creatinine 0.9 (0.7-1.2) mg/dL Glucose 219 H (65-100) mg/dL Calcium 9.1 (8.4-10.2) mg/dL
[2017-03-26] MEDS: COREG PO SCH ×2 (10:55→21:36)
[2017-03-26] MEDS: HALFPRIN EC PO SCH (10:59)
[2017-03-26] MEDS: K-DUR PO SCH (11:00)
[2017-03-26] MEDS: WELLBUTRIN SR PO SCH ×2 (11:02→21:34)
[2017-03-26] MEDS: ALDACTONE PO SCH (11:02)
[2017-03-26] MEDS: COLACE PO SCH ×2 (11:03→21:34)
[2017-03-26] MEDS: LOVENOX SUB-Q SCH (11:03)
[2017-03-26 12:34] LABS: Anion Gap 18 mmol/L; BUN/Creatinine Ratio 60; Blood Urea Nitrogen 48 mg/dL (7-17); Calcium 8.9 mg/dL (8.4-10.2); Carbon Dioxide 28 mmol/L (22-30); Chloride 94.5 mmol/L (98-107); Glucose 224 mg/dL (65-100); Sodium 137 mmol/L (137-145)
--- NOTE | 2017-03-26 13:30 | Progress Note ---
Assessment and Plan Assessment and plan: 71-year-old woman with a past medical history of CHF, history of CVA, diabetes, CAD status post 3 stents, depression, atrial fibrillation and hyperlipidemia who presents with shortness of breath and hypoxia consistent with acute exacerbation of CHF. she resides at [facility]. She has multiple medical problems, she's had many recent admissions to the hospital. The patient elected to be DO NOT RESUSCITATE. In the last year alone she's had 3 strokes, she's had a massive heart attack, she developed some bleeding in her GI tract which causes her hematemesis and some abdominal hematoma. She has CLEVE, after she had a massive heart attack she was comatose for 10 days. She has been in and out of rehabilitation until she was finally made a long-term resident of group home months ago. She is on oxygen by nasal cannula as needed, she was supposed to be on a CPAP machine in the past but it has not been continued since her she got to the group home. She is also morbidly obese, bed bound and chronically ill Echocardiogram, image reviewed, severe mitral leaflet calcification, moderate mitral stenosis and moderate mitral regurgitation, dilated left atrium, mild to moderate . EF of 60% Acute exacerbation of chronic diastolic CHF -Continue IV Lasix, continue beta syed, optimize medications. dc BP meds as BP is on the low side -add aldactone Pulmonary venous congestion Continue Lasix as above Atrial fibrillation Continue beta syed Acute on chronic hypoxic respiratory failure continue high flow oxygen -(uses oxygen prn at baseline) Diabetes Continue insulins and sliding scale CLEVE cpap at night if not on bipap (educated her daughter that her not using CPAP at [place] is likely worsening her CHF) Obesity Hypoventilation continue high flow oxygen and NIV as needed Hypokalemia continue daily supplementation and K sparing diuretic Patient is DNR, the case was discussed with the daughter at the bedside and with [employer] sales consultant The high probability of a clinically significant, sudden or life threatening deterioration of the [cardiovascular, pulmonary] system(s) required my full and direct attention, intervention and personal management. The aggregate critical care time was [33 minutes] minutes. This time is in addition to time spent performing reported procedures but includes the following: [] Data Review and interpretation [] Patient assessment and monitoring of vital signs [] Documentation [] Medication orders and management History Interval history: Shortness of breath is partially improving. Orthopnea is also improving. Her daughter is at the bedside and states that the patient's mental status is much improved. Hospitalist Physical - Physical exam Narrative exam: General.: Severe respiratory distress, using accessory muscles HEENT: Moist mucous membranes, extraocular muscles intact, no lymphadenopathy Neck: supple Cardiac: S1-S2 heard Lungs: bibasilar crackles abdomen, bowel sounds positive Extremities: 2+ bipedal edema Skin: no rash or lesions Neurologic: moves all extremities, oriented, judgement intact - Constitutional Vitals: Temp Pulse Resp BP Pulse Ox 96.0 F L 71 17 139/61 99 03/26/17 09:11 03/26/17 09:11 03/26/17 09:11 03/26/17 09:11 03/26/17 09:48 General appearance: Present: mild distress Results - Labs CBC & Chem 7: 03/21/17 09:30 03/26/17 11:36 Labs: Laboratory Last Values WBC 13.5 K/mm3 (4.5-11.0) H 03/21/17 09:30 RBC 5.60 M/mm3 (3.65-5.03) H 03/21/17 09:30 Hgb 15.7 gm/dl (10.1-14.3) H 03/21/17 09:30 Hct 47.0 % (30.3-42.9) H 03/21/17 09:30 MCV 84 fl (79-97) 03/21/17 09:30 MCH 28 pg (28-32) 03/21/17 09:30 MCHC 33 % (30-34) 03/21/17 09:30 RDW 14.2 % (13.2-15.2) 03/21/17 09:30 Plt Count 161 K/mm3 (140-440) 03/21/17 09:30 Lymph % (Auto) 12.4 % (13.4-35.0) L 03/20/17 23:08 [place] % (Auto) 5.8 % (0.0-7.3) 03/20/17 23:08 Eos % (Auto) 0.9 % (0.0-4.3) 03/20/17 23:08 Baso % (Auto) 1.1 % (0.0-1.8) 03/20/17 23:08 Lymph # 1.7 K/mm3 (1.2-5.4) 03/20/17 23:08 [place] # 0.8 K/mm3 (0.0-0.8) 03/20/17 23:08 Eos # 0.1 K/mm3 (0.0-0.4) 03/20/17 23:08 Baso # 0.2 K/mm3 (0.0-0.1) H 03/20/17 23:08 Seg Neutrophils % 79.8 % (40.0-70.0) H 03/20/17 23:08 Seg Neutrophils # 11.2 K/mm3 (1.8-7.7) H 03/20/17 23:08 PT 15.0 Sec. (12.2-14.9) H 03/21/17 00:22 INR 1.12 (0.87-1.13) 03/21/17 00:22 APTT 32.5 Sec. (24.2-36.6) 03/21/17 00:22 Sodium 137 mmol/L (137-145) 03/26/17 11:36 Potassium 3.0 mmol/L (3.6-5.0) L 03/26/17 11:36 Chloride 94.5 mmol/L (98-107) L 03/26/17 11:36 Carbon Dioxide 28 mmol/L (22-30) 03/26/17 11:36 Anion Gap 18 mmol/L 03/26/17 11:36 BUN 48 mg/dL (7-17) H 03/26/17 11:36 Creatinine 0.8 mg/dL (0.7-1.2) 03/26/17 11:36 Estimated GFR > 60 ml/min 03/26/17 11:36 BUN/Creatinine Ratio 60 % 03/26/17 11:36 Glucose 224 mg/dL (65-100) H 03/26/17 11:36 POC Glucose 244 (70-105) H 03/26/17 11:40 Calcium 8.9 mg/dL (8.4-10.2) 03/26/17 11:36 Total Creatine Kinase 30 units/L (30-135) 03/21/17 11:52 CK-MB (CK-2) 1.1 ng/mL (0.0-4.0) 03/21/17 11:52 CK-MB (CK-2) Rel Index 3.6 (0-4) 03/21/17 11:52 Troponin T < 0.010 ng/mL (0.00-0.029) 03/21/17 11:52 NT-Pro-B Natriuret Pep 3718 pg/mL (0-900) H 03/20/17 23:08
[2017-03-26] MEDS: SENOKOT S PO SCH (21:34)
[2017-03-26] MEDS: RESTORIL PO SCH (21:35)
[2017-03-27] MEDS: LASIX IV SCH ×3 (05:29→22:56)
[2017-03-27] MEDS: NITRO-BID 2% TP SCH ×3 (05:29→18:06)
[2017-03-27 07:36] LABS: Anion Gap 19 mmol/L; BUN/Creatinine Ratio 54; Blood Urea Nitrogen 43 mg/dL (7-17); Calcium 9.6 mg/dL (8.4-10.2); Carbon Dioxide 30 mmol/L (22-30); Chloride 95.7 mmol/L (98-107); Glucose 154 mg/dL (65-100); Potassium 3.2 mmol/L (3.6-5.0); Sodium 141 mmol/L (137-145)
[2017-03-27] MEDS: LOVENOX SUB-Q SCH (09:21)
[2017-03-27] MEDS: K-DUR PO SCH (09:22)
[2017-03-27] MEDS: ALDACTONE PO SCH (09:22)
[2017-03-27] MEDS: HALFPRIN EC PO SCH (09:22)
[2017-03-27] MEDS: WELLBUTRIN SR PO SCH ×2 (09:22→21:54)
[2017-03-27] MEDS: COLACE PO SCH ×2 (09:23→21:51)
[2017-03-27] MEDS: COREG PO SCH ×2 (09:25→21:54)
[2017-03-27] MEDS: ROXICODONE PO PRN ×3 (09:50→21:53)
[2017-03-27] MEDS ORDERED: LASIX IV SCH (10:00)
--- NOTE | 2017-03-27 11:23 | Progress Note ---
Assessment and Plan Shortness of breath CLEVE Hypoxia Pulmonary HTN CHF with preserved EF Leukocytosis Persistent Afib previously considered not a candidate for oral anticoagulation Prior CVA Hypertension RBBB Hx of CAD DNR/AND status Continue medical management for heart failure with preserved ejection fraction. Subjective Date of service: 03/27/17 Principal diagnosis: SOB Interval history: No distress noted. Stable Afib on telemetry. Objective Vital Signs Temp Pulse Pulse Resp BP BP Pulse Ox 03/27/17 11:14 96 03/27/17 10:00 93 H 03/27/17 09:25 93 H 192/71 03/27/17 09:22 72 03/27/17 06:10 90 27 H 90 03/27/17 05:29 84 96/68 03/27/17 04:40 98.2 F 84 22 96/68 94 03/27/17 04:20 94 03/27/17 01:01 98.2 F 68 22 116/54 03/26/17 22:16 28 H 95 03/26/17 20:44 97.2 F L 72 24 102/61 91 03/26/17 20:31 94 03/26/17 20:00 78 03/26/17 15:47 97.5 F L 72 17 112/33 85 03/26/17 13:51 98.7 F 98 H 17 179/110 95 03/26/17 13:45 96.8 F L 65 17 72/50 89 - Physical Examination General: No Apparent Distress Cardiac: Positive: irregularly irregular - Labs and Meds Comprehensive Metabolic Panel 03/26/17 03/27/17 Range/Units 11:36 06:07 Sodium 137 141 (137-145) mmol/L Potassium 3.0 L 3.2 L (3.6-5.0) mmol/L Chloride 94.5 L 95.7 L (98-107) mmol/L Carbon Dioxide 28 30 (22-30) mmol/L BUN 48 H 43 H (7-17) mg/dL Creatinine 0.8 0.8 (0.7-1.2) mg/dL Glucose 224 H 154 H (65-100) mg/dL Calcium 8.9 9.6 (8.4-10.2) mg/dL
[2017-03-27 12:32] LABS: Anion Gap 19 mmol/L; BUN/Creatinine Ratio 56; Blood Urea Nitrogen 45 mg/dL (7-17); Calcium 9.3 mg/dL (8.4-10.2); Carbon Dioxide 26 mmol/L (22-30); Chloride 95.7 mmol/L (98-107); Glucose 239 mg/dL (65-100); Sodium 137 mmol/L (137-145)
[2017-03-27 12:37] LABS: Potassium 3.9 mmol/L (3.6-5.0)
[2017-03-27] MEDS ORDERED: MORPHINE IV PRN (13:44)
--- NOTE | 2017-03-27 15:14 | Progress Note ---
Assessment and Plan /Acute exacerbation of chronic diastolic CHF -Continue IV Lasix, continue beta syed, optimize medications. dc BP meds as BP is on the low side -added aldactone - Echocardiogram, image reviewed, severe mitral leaflet calcification, moderate mitral stenosis and moderate mitral regurgitation, dilated left atrium, mild to moderate . EF of 60% /Pulmonary venous congestion due to CHF exacerbation Continue Lasix /Atrial fibrillation Continue beta syed /Acute on chronic hypoxic respiratory failure continue high flow oxygen -(uses oxygen prn at baseline) /Diabetes Continue insulins and sliding scale /CLEVE cpap at night if not on bipap (educated her daughter that her not using CPAP at [place] is likely worsening her CHF) /Obesity Hypoventilation continue high flow oxygen and NIV as needed /Hypokalemia continue daily supplementation and K sparing diuretic Patient is DNR, the case was discussed with the daughter at the bedside and with cyber security consultant Brief History: 71-year-old woman resides at [facility] with a past medical history of CHF, history of CVA, diabetes, CAD status post 3 stents, depression, atrial fibrillation and hyperlipidemia who presents with shortness of breath and hypoxia consistent with acute exacerbation of CHF. The patient elected to be DO NOT RESUSCITATE. In the last year alone she's had 3 strokes, she's had a massive heart attack, she developed some bleeding in her GI tract which causes her hematemesis and intra abdominal hematoma. She has CLEVE, after she had a massive heart attack she was comatose for 10 days. She has been in and out of rehabilitation until she was [facility] ago. She is on oxygen by nasal cannula as needed, she was supposed to be on a CPAP machine in the past but it has not been continued since her she got to the [facility]. She is also morbidly obese, bed bound and chronically ill Hospitalist Physical - Physical exam Narrative exam: General.: NO acute respiratory distress, on BiPAP HEENT: Moist mucous membranes, extraocular muscles intact, no lymphadenopathy Neck: supple Cardiac: S1-S2 heard Lungs: bibasilar crackles abdomen, bowel sounds positive Extremities: 2+ bipedal edema Skin: no rash or lesions Neurologic: moves all extremities, oriented, Subjective Date of service: 03/27/17 Principal diagnosis: SOB Interval history: pt seen and examined, on biPAP now Shortness of breath is partially improving. Orthopnea is also improving. Her daughter is at the bedside and states that the patient's mental status is much improved. Objective - Constitutional Vitals: Vital Signs - 12hr 03/27/17 03/27/17 03/27/17 04:20 04:40 05:29 Temperature 98.2 F Pulse Rate 84 84 Pulse Rate [ Apical] Respiratory 22 Rate Blood Pressure 96/68 Blood Pressure 96/68 [Right] O2 Sat by Pulse 94 94 Oximetry 03/27/17 03/27/17 03/27/17 06:10 09:22 09:25 Temperature Pulse Rate 90 72 93 H Pulse Rate [ Apical] Respiratory 27 H Rate Blood Pressure 192/71 Blood Pressure [Right] O2 Sat by Pulse 90 Oximetry 03/27/17 03/27/17 03/27/17 10:00 11:14 12:05 Temperature Pulse Rate 98 H Pulse Rate [ 93 H Apical] Respiratory Rate Blood Pressure Blood Pressure [Right] O2 Sat by Pulse 96 Oximetry 03/27/17 03/27/17 12:08 13:23 Temperature Pulse Rate 84 80 Pulse Rate [ Apical] Respiratory 30 H Rate Blood Pressure Blood Pressure [Right] O2 Sat by Pulse 79 L Oximetry - Labs CBC & Chem 7: 03/28/17 07:17 03/27/17 11:57 Labs: Abnormal lab results 03/26/17 03/26/17 03/27/17 Range/Units 16:24 20:37 06:07 Potassium 3.2 L (3.6-5.0) mmol/L Chloride 95.7 L (98-107) mmol/L BUN 43 H (7-17) mg/dL Glucose 154 H (65-100) mg/dL POC Glucose 215 H 158 H (70-105) 03/27/17 03/27/17 Range/Units 08:43 11:57 Potassium (3.6-5.0) mmol/L Chloride 95.7 L (98-107) mmol/L BUN 45 H (7-17) mg/dL Glucose 239 H (65-100) mg/dL POC Glucose 157 H (70-105)
[2017-03-27] MEDS: RESTORIL PO SCH (21:51)
[2017-03-27] MEDS: SENOKOT S PO SCH (21:54)
[2017-03-28] MEDS: LASIX IV SCH (05:21)
[2017-03-28] MEDS: NITRO-BID 2% TP SCH ×2 (05:59→14:31)
[2017-03-28 07:47] LABS: Hematocrit 41.7 % (30.3-42.9); Hemoglobin 13.6 gm/dl (10.1-14.3); Mean Corpuscular HGB Conc 33 % (30-34); Mean Corpuscular Hemoglobin 28 pg (28-32); Mean Corpuscular Volume 85 fl (79-97); Platelet Count 192 K/mm3 (140-440); Red Blood Count 4.88 M/mm3 (3.65-5.03); Red Cell Distribution Width 14.1 % (13.2-15.2); White Blood Count 16.8 K/mm3 (4.5-11.0)
[2017-03-28] MEDS: LOVENOX SUB-Q SCH (10:11)
[2017-03-28] MEDS: HALFPRIN EC PO SCH (10:11)
[2017-03-28] MEDS: K-DUR PO SCH (10:11)
[2017-03-28] MEDS: COREG PO SCH ×2 (10:12→22:25)
[2017-03-28] MEDS: ALDACTONE PO SCH (10:12)
[2017-03-28] MEDS: COLACE PO SCH ×2 (10:12→22:26)
[2017-03-28] MEDS: WELLBUTRIN SR PO SCH ×2 (10:19→22:26)
[2017-03-28] MEDS: ROXICODONE PO PRN ×2 (11:04→22:23)
--- NOTE | 2017-03-28 11:28 | Progress Note ---
Assessment and Plan Shortness of breath CLEVE Hypoxia Pulmonary HTN CHF with preserved EF Leukocytosis Persistent Afib previously considered not a candidate for oral anticoagulation Prior CVA Hypertension RBBB Hx of CAD DNR/AND status Continue medical management for heart failure with preserved ejection fraction. Otherwise, conservative cardiac management. Subjective Date of service: 03/28/17 Principal diagnosis: SOB Interval history: No interval changes. Objective Vital Signs Temp Pulse Pulse Resp BP BP Pulse Ox 03/28/17 11:09 85 92 03/28/17 10:12 85 170/90 03/28/17 08:06 97.9 F 22 170/79 03/28/17 07:26 94 03/28/17 04:57 97.6 F 68 22 152/59 98 03/28/17 03:00 88 2 L 95 03/28/17 00:32 97.3 F L 85 24 142/54 97 03/27/17 22:15 92 H 2 L 94 03/27/17 22:00 76 86 03/27/17 21:00 94 03/27/17 20:39 97.2 F L 88 24 151/52 84 03/27/17 15:56 90 03/27/17 13:23 80 03/27/17 13:00 98.9 F 85 20 140/51 93 03/27/17 12:08 84 30 H 79 L 03/27/17 12:05 98 H - Physical Examination General: No Apparent Distress Cardiac: Positive: irregularly irregular - Labs and Meds CBC 03/28/17 Range/Units 07:17 WBC 16.8 H (4.5-11.0) K/mm3 RBC 4.88 (3.65-5.03) M/mm3 Hgb 13.6 (10.1-14.3) gm/dl Hct 41.7 (30.3-42.9) % Plt Count 192 (140-440) K/mm3 Comprehensive Metabolic Panel 03/27/17 Range/Units 11:57 Sodium 137 (137-145) mmol/L Potassium 3.9 D (3.6-5.0) mmol/L Chloride 95.7 L (98-107) mmol/L Carbon Dioxide 26 (22-30) mmol/L BUN 45 H (7-17) mg/dL Creatinine 0.8 (0.7-1.2) mg/dL Glucose 239 H (65-100) mg/dL Calcium 9.3 (8.4-10.2) mg/dL
[2017-03-28 12:34] LABS: Anion Gap 19 mmol/L; BUN/Creatinine Ratio 68; Blood Urea Nitrogen 54 mg/dL (7-17); Carbon Dioxide 25 mmol/L (22-30); Chloride 94.9 mmol/L (98-107); Glucose 276 mg/dL (65-100); Potassium 3.8 mmol/L (3.6-5.0); Sodium 135 mmol/L (137-145)
[2017-03-28] MEDS: NORVASC PO SCH (14:38)
--- NOTE | 2017-03-28 14:49 | XRay Report ---
AP CHEST: HISTORY: Short of breath Cardiomegaly is stable. There is increased bilateral infiltrates or pulmonary edema since the exam 4 days ago. Trace pleural effusions are likely present. No pneumothorax. Diffuse aortic calcifications. IMPRESSION: Increased bilateral infiltrates or pulmonary edema since 03/24/17.
--- NOTE | 2017-03-28 16:24 | Progress Note ---
Assessment and Plan /PHTN - will consult pulmonary, cont lasix, supplimental O2 /Acute exacerbation of chronic diastolic CHF -Continue IV Lasix, continue beta syed, optimize medications. dc BP meds as BP is on the low side -added aldactone - Echocardiogram, image reviewed, severe mitral leaflet calcification, moderate mitral stenosis and moderate mitral regurgitation, dilated left atrium, mild to moderate . EF of 60% /Pulmonary venous congestion due to CHF exacerbation Continue Lasix /Atrial fibrillation Continue beta syed not a candidate for antocoagulation /Acute on chronic hypoxic respiratory failure continue high flow oxygen -(uses oxygen prn at baseline) - repeat cxr today /Diabetes Continue insulins and sliding scale /CLEVE on bipap at bedtime /Obesity Hypoventilation continue high flow oxygen and NIV as needed /Hypokalemia continue daily supplementation and K sparing diuretic /HTN, uncontrolled -continue current meds Patient is DNR, the case was discussed with the daughter at the bedside Disposition: likely will need LTAC Brief History: 71-year-old woman resides at [facility] with a past medical history of CHF, history of CVA, diabetes, CAD status post 3 stents, depression, atrial fibrillation and hyperlipidemia who presents with shortness of breath and hypoxia consistent with acute exacerbation of CHF. The patient elected to be DO NOT RESUSCITATE. In the last year alone she's had 3 strokes, she's had a massive heart attack, she developed some bleeding in her GI tract which causes her hematemesis and intra abdominal hematoma. She has CLEVE, after she had a massive heart attack she was comatose for 10 days. She has been in and out of rehabilitation until she was [facility] a [facility]. She is on oxygen by nasal cannula as needed, she was supposed to be on a CPAP machine in the past but it has not been continued since her [facility] got [facility] the [facility]. She is also morbidly obese, bed bound and chronically ill Hospitalist Physical - Physical exam Narrative exam: General.: + distress, on 75% FiO2 HEENT: Moist mucous membranes, extraocular muscles intact, no lymphadenopathy Neck: supple Cardiac: S1-S2 heard Lungs: bibasilar crackles abdomen, bowel sounds positive Extremities: 2+ bipedal edema Skin: no rash or lesions Neurologic: moves all extremities, not oriented, Subjective Date of service: 03/28/17 Principal diagnosis: SOB Interval history: pt seen and examined, Pt is requiring more O2 today on 75% FiO2 with vapotherm discussed with daughter at bedside. Objective - Constitutional Vitals: Vital Signs - 12hr 03/28/17 03/28/17 03/28/17 04:57 07:26 08:06 Temperature 97.6 F 97.9 F Pulse Rate 68 Pulse Rate [ Apical] Respiratory 22 22 Rate Blood Pressure 170/79 Blood Pressure 152/59 [Right] O2 Sat by Pulse 98 94 Oximetry 03/28/17 03/28/17 03/28/17 10:12 11:09 13:39 Temperature 97.8 F Pulse Rate 85 79 Pulse Rate [ 85 Apical] Respiratory Rate Blood Pressure 170/90 Blood Pressure 157/39 [Right] O2 Sat by Pulse 92 Oximetry 03/28/17 03/28/17 14:31 14:38 Temperature Pulse Rate 79 79 Pulse Rate [ Apical] Respiratory Rate Blood Pressure 158/92 158/92 Blood Pressure [Right] O2 Sat by Pulse Oximetry - Labs CBC & Chem 7: 03/28/17 07:17 03/28/17 11:26 Labs: Abnormal lab results 03/27/17 03/27/17 03/28/17 Range/Units 16:42 21:27 07:17 WBC 16.8 H (4.5-11.0) K/mm3 Sodium (137-145) mmol/L Chloride (98-107) mmol/L BUN (7-17) mg/dL Glucose (65-100) mg/dL POC Glucose 190 H 235 H (70-105) 03/28/17 03/28/17 03/28/17 Range/Units 07:56 11:26 12:24 WBC (4.5-11.0) K/mm3 Sodium 135 L (137-145) mmol/L Chloride 94.9 L (98-107) mmol/L BUN 54 H (7-17) mg/dL Glucose 276 H (65-100) mg/dL POC Glucose 178 H 264 H (70-105)
--- NOTE | 2017-03-28 18:51 | Event Note ---
Date: 03/28/[address] BARGER THAN YOU FOR ASKING US TO PARTICIPATE IN THE CARE OF THIS PATIENT. Consultation dictation number: [id number] This is 71 year old white female Morbidly Obese admitted from skilled nursing for shortness of breath and hypoxemia. Patient has history of CHF, Atrial fibrillation, CVA,Diabetes , Hyperlipidemia, CAD with 3 stent placements and depression.Patient diagnosed with acute exacerbation of CHF.Patient is Morbidly Obese and has history of sleep apnea and Obesity Hypoventilation.Patient allergic to Multiple medications Amoxacillin, Codeine,Darifenasin,Diatrizoate meglumine. Patient is on high flow O2, FIO2 75% . O2 saturation 97%. Patient confused, unable to get any history. IMPRESSION: 1. Acute exacerbation of CHF. 2. Shortness of breath 3. Acute hypoxic respiratory failure. 4. Morbid obesity. 5. Sleep apnea and Obesity hypoventilation. 6. CAD 7. Atrial fibrillation. 8. Multiple CVAs 9. Diabetes. 10. Hyperlipidemia. 11. Depression. Plan; 1. BIPAP 20/10, rate 20, FIO2 50%. 2. Continue S/C Lovenox. 3. ABGs on BIPAP tomorrow. 4. Brovanna/Budesonide aerosol treatments q 12 hours. .
[2017-03-28] MEDS: RESTORIL PO SCH (22:23)
[2017-03-28] MEDS: SENOKOT S PO SCH (22:24)
[2017-03-29] MEDS: ROXICODONE PO PRN ×2 (05:05→10:03)
[2017-03-29] MEDS: NITRO-BID 2% TP SCH (07:58)
[2017-03-29] MEDS ORDERED: BROVANA NEBU IH SCH (08:00)
[2017-03-29] MEDS ORDERED: PULMICORT IH SCH (08:00)
[2017-03-29 09:21] LABS: Hematocrit 41.1 % (30.3-42.9); Hemoglobin 13.5 gm/dl (10.1-14.3); Mean Corpuscular HGB Conc 33 % (30-34); Mean Corpuscular Hemoglobin 28 pg (28-32); Mean Corpuscular Volume 85 fl (79-97); Platelet Count 229 K/mm3 (140-440); Red Blood Count 4.82 M/mm3 (3.65-5.03); Red Cell Distribution Width 14.2 % (13.2-15.2)
[2017-03-29 09:26] LABS: White Blood Count 26.3 K/mm3 (4.5-11.0)
[2017-03-29 09:35] LABS: Anion Gap 21 mmol/L; BUN/Creatinine Ratio 70; Blood Urea Nitrogen 56 mg/dL (7-17); Calcium 9.5 mg/dL (8.4-10.2); Carbon Dioxide 26 mmol/L (22-30); Chloride 94.5 mmol/L (98-107); Glucose 242 mg/dL (65-100); Sodium 136 mmol/L (137-145)
[2017-03-29] MEDS: LOVENOX SUB-Q SCH (09:53)
[2017-03-29] MEDS: WELLBUTRIN SR PO SCH (09:53)
[2017-03-29] MEDS: K-DUR PO SCH (09:53)
[2017-03-29] MEDS: NORVASC PO SCH (09:54)
[2017-03-29] MEDS: COREG PO SCH (09:54)
[2017-03-29] MEDS: COLACE PO SCH (09:54)
[2017-03-29] MEDS: HALFPRIN EC PO SCH (09:55)
--- NOTE | 2017-03-29 11:16 | Progress Note ---
Assessment and Plan Shortness of breath CLEVE Hypoxia Pulmonary HTN CHF with preserved EF Leukocytosis Persistent Afib previously considered not a candidate for oral anticoagulation Prior CVA Hypertension RBBB Hx of CAD DNR/AND status Recommendations: Discontinue aldactone and potassium chloride due to borderline elevated potassium Consider rechecking ABGs to rule out CO2 retention as potential reason behind her confusion - Pulmonary is on board Otherwise, conservative cardiac management. Subjective Date of service: 03/29/17 Principal diagnosis: SOB Interval history: Patient is confused this mrmaryann. She has bilateral mittens. She is not answering questions appropriately. Objective Vital Signs Temp Pulse Resp Resp BP BP Pulse Ox 03/29/17 09:54 89 111/71 03/29/17 05:05 22 03/29/17 03:55 97.9 F 94 H 20 102/68 92 03/29/17 02:01 78 22 91 03/29/17 00:00 91 03/28/17 23:59 98.0 F 88 22 101/64 90 03/28/17 22:25 87 119/88 03/28/17 22:00 84 22 03/28/17 19:28 97.6 F 87 18 119/88 97 03/28/17 18:30 94 03/28/17 16:21 98.2 F 85 20 96/60 95 03/28/17 14:38 79 158/92 03/28/17 14:31 79 158/92 03/28/17 13:39 97.8 F 79 157/39 03/28/17 13:03 73 96 - Physical Examination General: No Apparent Distress Neck: Positive: neck supple Cardiac: Positive: irregularly irregular Lungs: Positive: Decreased Breath Sounds Abdomen: Positive: Soft Extremities: Absent: edema - Labs and Meds CBC 03/29/17 Range/Units 08:59 WBC 26.3 H (4.5-11.0) K/mm3 RBC 4.82 (3.65-5.03) M/mm3 Hgb 13.5 (10.1-14.3) gm/dl Hct 41.1 (30.3-42.9) % Plt Count 229 (140-440) K/mm3 Comprehensive Metabolic Panel 03/28/17 03/29/17 Range/Units 11:26 08:59 Sodium 135 L 136 L (137-145) mmol/L Potassium 3.8 5.0 D (3.6-5.0) mmol/L Chloride 94.9 L 94.5 L (98-107) mmol/L Carbon Dioxide 25 26 (22-30) mmol/L BUN 54 H 56 H (7-17) mg/dL Creatinine 0.8 0.8 (0.7-1.2) mg/dL Glucose 276 H 242 H (65-100) mg/dL Calcium 9.0 9.5 (8.4-10.2) mg/dL
[2017-03-29 13:24] VITALS: BP 91/62
--- NOTE | 2017-03-29 14:45 | Query-Altered Level of Consc. ---
Kelli lBanco Date:___03/29/2017 Keyboard Specialist/CDS:____Mare Phone#:___[phone] Exercise your independent professional judgment when responding to this query. Questions asked do not imply a particular answer is desired or expected. We greatly appreciate your clarification on this issue. Clinical Documentation States: 71 Year old male was admitted on 03/21/2017 for SOB. The Pulmonary consultation note on 03/28/2017 states "Patient confused, unable to get any history." The Cardiology progress note on 03/29/2017 states "Consider rechecking ABGs to rule out CO2 retention as potential reason behind her confusion - Pulmonary is on board. Patient is confused this morning. She has bilateral mittens. She is not answering questions appropriately." Please provide an appropriate diagnosis clarifying the Etiology and Acuity of this clinical scenario: [ ] Metabolic Encephalopathy [ ] Toxic Encephalopathy [ ] Toxic - Metabolic Encephalopathy [ ] Septic Encephalopathy with Sepsis [ ] Septic Encephalopathy without Sepsis [ ] Acute Hepatic Encephalopathy [ ] Subacute Hepatic Encephalopathy [ ] Encephalopathy [ ] Other: [ ] Unable To Determine [ ]Comment/Explanation: Present on Admission: [ ] Yes (Y) [ ] Clinically undeterminable (W) [ ] No (N) Please also document response in your Progress Notes and/or Discharge Summary and indicate if the condition was present on admission. MTDD
--- NOTE | 2017-03-29 15:47 | Discharge Summary ---
Providers - Providers Date of Admission: 03/21/17 01:19 Date of discharge: 03/29/17 Attending physician: ESTEFANIA ORTIZ 03/21/17 14:01 Consult to Physician [CONS] Routine Consulting Provider: JOVAN BACON Reason For Exam: CHF Place consult to:: [facility] Notified:: moe Comment:: added to list 03/22/17 11:50 Occupational Therapy Evaluate and Treat [CONS] Routine Comment: Reason For Exam: debitly Physical Therapy Evaluation and Treat [CONS] Routine Comment: Reason For Exam: debility 03/27/17 14:39 Speech Therapy Evaluation and Treat [CONS] Routine Reason For Exam: swallowing difficulty 03/28/17 14:04 Consult to Physician [CONS] Routine Consulting Provider: SHELBI SANTANA Reason For Exam: PHTN Place consult to:: Dr. Park Notified:: office Comment:: added to list Primary care physician: VALVE REPAIRER Hospitalization Condition: Fair Disposition: [id number]/TX-[id number] ANOTHER TYPE [facility] - Discharge Diagnoses (1) Diabetes mellitus type 2 with complications Status: Acute Qualifiers: Diabetes mellitus longterm insulin use: D (2) Acute and chronic respiratory failure Status: Acute Qualifiers: Respiratory failure complication: R (3) Acute on chronic diastolic (congestive) heart failure Status: Acute (4) Chronic atrial fibrillation Status: Acute (5) Chronic pain Status: Acute Qualifiers: Chronic pain type: C (6) DNR (do not resuscitate) Status: Acute (7) Pulmonary edema Status: Acute Qualifiers: Chronicity: C Core Measure Documentation - Palliative Care Palliative Care/ Comfort Measures: Not Applicable - Core Measures Any of the following diagnoses?: none Exam - Constitutional Vitals: Temp Pulse Resp BP Pulse Ox 97.5 F L 87 22 91/62 95 03/29/17 13:24 03/29/17 13:24 03/29/17 13:24 03/29/17 13:24 03/29/17 13:24 Plan Activity: advance as tolerated Diet: low fat, low cholesterol, diabetic, other (Pureed diet) Additional Instructions: 1.BIPAP QHS. 2.Consult Dr. Somers to follow in LTAC please. 3.Consult Dr. Hillman to follow in LTAC. Follow up with: PRIMARY CARE, [Primary Care Provider] - 3-5 Days
--- NOTE | 2017-03-29 16:35 | Death Note ---
Note Date of : 03/29/17 Time Pronounced: 16:17 - Preliminary Cause of (problem) (1) Acute and chronic respiratory failure Qualifiers: Respiratory failure complication: R Preliminary cause of (2) Diabetes mellitus type 2 with complications Qualifiers: Diabetes mellitus fci insulin use: D Preliminary cause of (3) Acute on chronic diastolic (congestive) heart failure Preliminary cause of (4) Chronic atrial fibrillation Preliminary cause of (5) Chronic pain Qualifiers: Chronic pain type: C Preliminary cause of (6) DNR (do not resuscitate) Preliminary cause of (7) Pulmonary edema Qualifiers: Chronicity: C Preliminary cause of
--- NOTE | 2017-03-29 23:20 | Progress Note ---
Assessment and Plan - Patient Problems (1) Acute and chronic respiratory failure Current Visit: Yes Status: Acute Qualifiers: Respiratory failure complication: R (2) Acute on chronic diastolic (congestive) heart failure Current Visit: Yes Status: Acute (3) Chronic atrial fibrillation Current Visit: Yes Status: Acute (4) Chronic pain Current Visit: Yes Status: Acute Qualifiers: Chronic pain type: C (5) Diabetes mellitus type 2 with complications Current Visit: Yes Status: Acute Qualifiers: Diabetes mellitus termite inspector insulin use: D Subjective Date of service: 03/29/17 Principal diagnosis: SOB Objective Vital Signs - 12hr 03/29/17 13:24 Temperature 97.5 F L Pulse Rate 87 Respiratory 22 Rate Blood Pressure 91/62 [Right] O2 Sat by Pulse 95 Oximetry CBC and BMP: 03/29/17 08:59 03/29/17 08:59 ABG, PT/INR, D-dimer: PT/INR, D-dimer PT 15.0 Sec. (12.2-14.9) H 03/21/17 00:22 INR 1.12 (0.87-1.13) 03/21/17 00:22 Abnormal lab findings: Abnormal Labs 03/21/17 03/21/17 03/21/17 06:07 08:07 09:30 WBC RBC Hgb Hct Sodium Potassium Chloride BUN Glucose POC Glucose 148 H 124 H Total Creatine Kinase 22 L CK-MB (CK-2) Rel Index 5.0 H 03/21/17 03/21/17 03/21/17 09:30 12:22 16:47 WBC 13.5 H RBC 5.60 H Hgb 15.7 H Hct 47.0 H Sodium Potassium Chloride BUN Glucose POC Glucose 109 H 151 H Total Creatine Kinase CK-MB (CK-2) Rel Index 03/21/17 03/22/17 03/22/17 22:47 13:05 22:12 WBC RBC Hgb Hct Sodium Potassium Chloride BUN Glucose POC Glucose 164 H 161 H 135 H Total Creatine Kinase CK-MB (CK-2) Rel Index 03/23/17 03/23/17 03/23/17 08:35 11:48 16:54 WBC RBC Hgb Hct Sodium Potassium Chloride BUN Glucose POC Glucose 124 H 169 H 246 H Total Creatine Kinase CK-MB (CK-2) Rel Index 03/23/17 03/24/17 03/24/17 23:18 11:59 14:09 WBC RBC Hgb Hct Sodium 136 L Potassium Chloride 96.9 L BUN 48 H Glucose 207 H POC Glucose 221 H 194 H Total Creatine Kinase CK-MB (CK-2) Rel Index 03/24/17 03/24/17 03/25/17 16:03 21:03 08:08 WBC RBC Hgb Hct Sodium Potassium Chloride BUN Glucose POC Glucose 223 H 177 H 157 H Total Creatine Kinase CK-MB (CK-2) Rel Index 03/25/17 03/25/17 03/25/17 12:22 13:22 16:17 WBC RBC Hgb Hct Sodium Potassium 3.0 L Chloride 97.6 L BUN 54 H Glucose 219 H POC Glucose 232 H 134 H Total Creatine Kinase CK-MB (CK-2) Rel Index 03/25/17 03/25/17 03/26/17 19:14 22:04 08:09 WBC RBC Hgb Hct Sodium Potassium Chloride BUN Glucose POC Glucose 146 H 192 H 146 H Total Creatine Kinase CK-MB (CK-2) Rel Index 03/26/17 03/26/17 03/26/17 11:36 11:40 16:24 WBC RBC Hgb Hct Sodium Potassium 3.0 L Chloride 94.5 L BUN 48 H Glucose 224 H POC Glucose 244 H 215 H Total Creatine Kinase CK-MB (CK-2) Rel Index 03/26/17 03/27/17 03/27/17 20:37 06:07 08:43 WBC RBC Hgb Hct Sodium Potassium 3.2 L Chloride 95.7 L BUN 43 H Glucose 154 H POC Glucose 158 H 157 H Total Creatine Kinase CK-MB (CK-2) Rel Index 03/27/17 03/27/17 03/27/17 11:57 12:05 16:42 WBC RBC Hgb Hct Sodium Potassium Chloride 95.7 L BUN 45 H Glucose 239 H POC Glucose 232 H 190 H Total Creatine Kinase CK-MB (CK-2) Rel Index 03/27/17 03/28/17 03/28/17 21:27 07:17 07:56 WBC 16.8 H RBC Hgb Hct Sodium Potassium Chloride BUN Glucose POC Glucose 235 H 178 H Total Creatine Kinase CK-MB (CK-2) Rel Index 03/28/17 03/28/17 03/28/17 11:26 12:24 16:13 WBC RBC Hgb Hct Sodium 135 L Potassium Chloride 94.9 L BUN 54 H Glucose 276 H POC Glucose 264 H 216 H Total Creatine Kinase CK-MB (CK-2) Rel Index 03/28/17 03/29/17 03/29/17 21:47 07:53 08:59 WBC 26.3 H RBC Hgb Hct Sodium Potassium Chloride BUN Glucose POC Glucose 168 H 243 H Total Creatine Kinase CK-MB (CK-2) Rel Index 03/29/17 08:59 WBC RBC Hgb Hct Sodium 136 L Potassium Chloride 94.5 L BUN 56 H Glucose 242 H POC Glucose Total Creatine Kinase CK-MB (CK-2) Rel Index
--- NOTE | 2017-03-30 21:16 | Consultation ---
CONSULTED BY: Dr. Bajwa. STRIPPER MACHINE OPERATOR: Dr. Rodolfo Torres. Dr. Bajwa, thank you for asking me to participate in the care of this patient. This is a 71-year-old female admitted [facility] for shortness of breath and hypoxemia. The patient has a history of CHF, atrial fibrillation, cerebrovascular accident, diabetes mellitus, hyperlipidemia, coronary artery disease with 3 coronary stent placement and depression. The patient diagnosed with acute exacerbation of CHF. The patient is admitted to the hospital. The patient is morbidly obese and has a history of sleep apnea and obesity hypoventilation. The patient is allergic to multiple medications amoxicillin, codeine, darifenacin, diatrizoate, meglumine. The patient presently on high flow O2, FIO2 of 73, O2 saturation 97%. The patient is confused, unable to get any history from her. The patient's chest x-ray reported increased bilateral infiltrate or pulmonary edema has been reported. LABORATORY DATA: The patient's BMP: Sodium 137, potassium 3.9, BUN 45, creatinine 0.8, glucose is 298. The patient's CBC: WBC 16.8, hemoglobin 13.6, hematocrit is 41.7 and platelet count is 192,000. PHYSICAL EXAMINATION: GENERAL: The patient is morbidly obese. VITAL SIGNS: Temperature 97.8, pulse 79, blood pressure is 158/92. HEENT: Pupils are equal and reactive. Extraocular muscles intact. NECK: Supple and short. HEART: Regular rate and rhythm. LUNGS: Bilateral rales. ABDOMEN: Bowel sounds present. EXTREMITIES: 3+ pedal edema. NEUROLOGICAL: The patient moves all extremities with rapid pain, but she is very lethargic. SKIN: No rash, no other lesion on the skin. IMPRESSION: 1. Acute exacerbation of congestive heart failure. 2. Shortness of breath. 3. Acute hypoxic respiratory failure. 4. Morbid obesity. 5. Sleep apnea and obesity hypoventilation. 6. Coronary artery disease. 7. Atrial fibrillation. 8. Multiple cerebrovascular accidents. 9. Diabetes. 10. Hyperlipidemia. 11. Depression. PLAN: 1. BiPAP 20/10, rate of 20 and FiO2 of 50%. 2. Continue subcutaneous Lovenox. 3. ABGs on BiPAP tomorrow. 4. Brovana and budesonide aerosol treatments q. 12 hours. I want to thank Dr. Bajwa for this consultation. JOB# [id number] RUDI/SUDHEER
== END 2017-03-29 18:00 | DRG 291 ==
LOC: ED 22:23 → CC1 03-21 01:19 → 4A 03-21 14:11
PROVIDERS: ADMIT Internal Medicine; ATTEND Internal Medicine
PROC: 5A09557 Assistance with Respiratory Ventilation, Greater than 96 Consecutive Hours, Continuous Positive Airway Pressure (ICD-10-PCS; principal; 2017-03-22)
DX: I11.0 Hypertensive heart disease with heart failure (principal); J96.21 Acute and chronic respiratory failure with hypoxia; Z68.44 Body mass index [BMI] 60.0-69.9, adult; E66.2 Morbid (severe) obesity with alveolar hypoventilation; I48.1 Persistent atrial fibrillation; K92.2 Gastrointestinal hemorrhage, unspecified; I50.43 Acute on chronic combined systolic (congestive) and diastolic (congestive) heart failure; E87.6 Hypokalemia; F32.9 Major depressive disorder, single episode, unspecified; E78.5 Hyperlipidemia, unspecified; E11.9 Type 2 diabetes mellitus without complications; I25.10 Atherosclerotic heart disease of native coronary artery without angina pectoris; G89.29 Other chronic pain; Z66 Do not resuscitate; I25.2 Old myocardial infarction; I27.20 Pulmonary hypertension, unspecified; I45.10 Unspecified right bundle-branch block; I08.2 Rheumatic disorders of both aortic and tricuspid valves; Z88.5 Allergy status to narcotic agent; Z88.1 Allergy status to other antibiotic agents; Z86.73 Personal history of transient ischemic attack (TIA), and cerebral infarction without residual deficits; Z88.0 Allergy status to penicillin; Z95.5 Presence of coronary angioplasty implant and graft; Z88.8 Allergy status to other drugs, medicaments and biological substances
CPT/HCPCS: 36415; 71010; 80048; 82550; 82553; 82962; 83880; 84484; 85025; 85027; 85610; 85730; 87040; 93005; 93010; 93306; 94640; 94660; 94760; A9270-GY; G8978-GP; G8979-GP; G8980-GP; G8987-GO; G8988-GO; G8989-GO; G8996-GN; G8997-GN; G8998-GN; J1170; J1644; J1650; J1815; J1940; J2405